=== PATIENT | female | born 1945 | race Caucasian/White ===

== ENCOUNTER 2018-02-13 08:03 | Inpatient (IN) | payer MEDICARE, OTHER ==
[~2018-02-13] VITALS: Ht 165.1 cm; Wt 70.1 kg
[~2018-02-13 08:03] MED LIST: AMLO10TA8 PO; AMLO5TAB4 PO; ASPI81TA50 PO; BUSP7.5T3 PO; CALC-112 PO; CAMPRAL MT; CLON0.1T12 PO; CLON0.1T22 PO; CLON0.2T PO; CLON0.2T10 PO; CLON0.5T11 PO; Cefdinir PO; DIAZ2TAB PO; DIAZ5TAB PO; DOCU-131 PO; FAMO20TA37 PO; FERR325T18 PO; HYDR-3343 PO; LEVO500T8 PO; LISI-170 PO; LORA-445 PO; LORA-446 PO; MAGN400T26 PO; MAGN400T7 PO; MAGN64TA7 PO; MAGNESIUM DR64 MG PO; MELA1TAB10 PO; MELA1TAB22 PO; MELA3TAB62 PO; METO10TA82 PO; METO25TA35 PO; METR500T PO; Miralax PO; ONDA4TAB10 PO; ONDA4TAB12 PO; ONDA4TAB7 PO; OXYC5CAP2 PO; OXYC5TAB3 PO; PANT40TA3 PO; POLY17PO5 PO; PRED20TA PO; PRED5TAB PO; SULF1TAB24 PO; THIA100T10 PO; TRAM-47 PO; TRAM50TA2 PO; TRAZ50TA66 PO; VENL37.52 PO; VENL75CA PO; VENL75TA2 PO; effexor PO
--- NOTE | 2018-02-13 08:33 | NUR ---
PT REFUSING THE RECOMENDED C-COLLAR EVEN AFTER REPEATED RECOMENDATIONS AND THE REASONS FOR HER SAFETY
[2018-02-13] MEDS ORDERED: FAMOTIDINE 20 MG TABLET ONE (08:38)
[2018-02-13] MEDS ORDERED: ONDANSETRON ODT 4 MG ONE (08:39)
[2018-02-13] MEDS ORDERED: FAMOTIDINE 20 MG TABLET PO ONE (09:00)
[2018-02-13] MEDS ORDERED: ONDANSETRON ODT 4 MG PO ONE (09:00)
[2018-02-13 09:10] LABS: BASOPHILS # (AUTO) 0.01 x10^3/uL (0-0.1); BASOPHILS % (AUTO) 0 % (0-1); EOSINOPHILS % (AUTO) 0 % (1-7); LYMPHOCYTES # (AUTO) 0.57 x10^3/uL (1-3.4); LYMPHOCYTES % (AUTO) 5 % (22-44); MD NO; MEAN CORPUSCULAR HEMOGLOBIN 29.9 pg (27.0-34.8); MEAN CORPUSCULAR HGB CONC 33.9 g/dL (32.4-35.8); MEAN CORPUSCULAR VOLUME 88.3 fL (80-100); MEAN PLATELET VOLUME 8.6 fL (7.4-10.4); MONOCYTES # (AUTO) 0.54 x10^3/uL (0.2-0.8); MONOCYTES % (AUTO) 5 % (2-9); NEUTROPHILS # (AUTO) 9.75 x10^3/uL (1.8-6.8); NEUTROPHILS % (AUTO) 90 % (42-75); PLATELET COUNT 446 x10^3/uL (130-400); RED BLOOD COUNT 4.32 x10^6/uL (3.82-5.3); RED CELL DISTRIBUTION WIDTH 15.1 % (9.6-15.2)
--- NOTE | 2018-02-13 09:10 | NUR ---
PT CO INCREASING NECK PAIN AND NOW AGREES TO A C-COLLAR C-COLLAR APPLIED THEN PT DEMANDED COLLAR BE REMOVED AGAIN REFUSES C-COLLAR
[2018-02-13 09:18] LABS: ANION GAP 11 mmol/L (5-15); CALCIUM 8.8 mg/dL (8.5-10.1); CHLORIDE 89 mmol/L (98-107); CREATININE 0.89 mg/dL (0.55-1.02)
[2018-02-13] MEDS ORDERED: ACETAMINOPHEN 500 MG TABLET PO ONE (09:30)
[2018-02-13] MEDS ORDERED: ACETAMINOPHEN 500 MG TABLET ONE (09:35)
--- NOTE | 2018-02-13 09:38 | NUR ---
PT REFUSING MONITORING
[2018-02-13] MEDS ORDERED: SODIUM CHLORIDE FLUSH 10ML SYR IVF ONE (10:00)
[2018-02-13] MEDS ORDERED: SODIUM CHLORIDE 0.9% 1,000ML IVBOLUS ONE (10:00)
--- NOTE | 2018-02-13 10:15 | NUR ---
TO BE ADMIT LOW SODIUM
[2018-02-13] MEDS ORDERED: ENALAPRILAT 1.25 MG/ML, 2ML IVPush PRN (11:00)
[2018-02-13] MEDS ORDERED: LABETALOL 5MG/ML, 20ML IVPush PRN (11:00)
[2018-02-13] MEDS ORDERED: ONDANSETRON 2MG/ML, 2ML IVPush PRN (11:00)
[2018-02-13 12:24] VITALS: BP 189/84
[2018-02-13] MEDS: FLUOXETINE HCL 20 MG CAPSULE PO SCH (12:49)
[2018-02-13] MEDS: LORazepam 1MG TABLET PO PRN (12:49)
[2018-02-13] MEDS: ONDANSETRON ODT 4 MG PO PRN ×2 (12:52→17:48)
[2018-02-13] MEDS: BACLOFEN 10 MG TABLET PO PRN (14:36)
[2018-02-13 17:06] VITALS: BP 141/69
[2018-02-13] MEDS: METOPROLOL TARTRATE 25 MG TABLET PO SCH (17:06)
[2018-02-13 18:06] LABS: OSMOLALITY,URINE 510 mOsm/kg (500-850); SODIUM,URINE RANDOM 16 mmol/L
[2018-02-13 18:19] LABS: CULTURE INDICATED? YES; MICROSCOPIC INDICATED
[2018-02-13 19:27] VITALS: BP 120/62
[2018-02-13] MEDS: FAMOTIDINE 20 MG TABLET PO SCH (22:27)
[2018-02-14 01:39] VITALS: BP 178/73
[2018-02-14 01:55] VITALS: BP 168/65
[2018-02-14] MEDS: ONDANSETRON ODT 4 MG PO PRN (03:13)
[2018-02-14 06:05] LABS: BASOPHILS # (AUTO) 0.02 x10^3/uL (0-0.1); BASOPHILS % (AUTO) 0 % (0-1); EOSINOPHILS % (AUTO) 0 % (1-7); LYMPHOCYTES # (AUTO) 0.99 x10^3/uL (1-3.4); LYMPHOCYTES % (AUTO) 13 % (22-44); MD NO; MEAN CORPUSCULAR HEMOGLOBIN 29.7 pg (27.0-34.8); MEAN CORPUSCULAR HGB CONC 33.9 g/dL (32.4-35.8); MEAN CORPUSCULAR VOLUME 87.6 fL (80-100); MEAN PLATELET VOLUME 8.7 fL (7.4-10.4); MONOCYTES # (AUTO) 0.64 x10^3/uL (0.2-0.8); MONOCYTES % (AUTO) 9 % (2-9); NEUTROPHILS # (AUTO) 5.85 x10^3/uL (1.8-6.8); NEUTROPHILS % (AUTO) 78 % (42-75); PLATELET COUNT 361 x10^3/uL (130-400); RED BLOOD COUNT 3.96 x10^6/uL (3.82-5.3); RED CELL DISTRIBUTION WIDTH 15.3 % (9.6-15.2)
[2018-02-14 06:10] VITALS: BP 166/64
[2018-02-14 06:13] LABS: ALBUMIN 3.3 g/dL (3.4-5.0); ANION GAP 10 mmol/L (5-15); CALCIUM 8.3 mg/dL (8.5-10.1); CHLORIDE 90 mmol/L (98-107)
[2018-02-14] MEDS: METOPROLOL TARTRATE 25 MG TABLET PO SCH ×2 (06:13→18:05)
[2018-02-14 06:25] LABS: ALANINE AMINOTRANSFERASE 24 U/L (12-78); ALKALINE PHOSPHATASE 90 U/L (45-117); BILIRUBIN,TOTAL 2.2 mg/dL (0.2-1.0); TOTAL PROTEIN 6.5 g/dL (6.4-8.2)
[2018-02-14] MEDS: LORazepam 1MG TABLET PO PRN ×3 (06:49→18:05)
[2018-02-14 07:23] VITALS: BP 162/68
[2018-02-14] MEDS: FLUOXETINE HCL 20 MG CAPSULE PO SCH (08:59)
[2018-02-14] MEDS: FAMOTIDINE 20 MG TABLET PO SCH ×2 (08:59→21:53)
[2018-02-14] MEDS ORDERED: LISI-170 PO (11:08)
[2018-02-14] MEDS ORDERED: FLUO20CA19 PO (11:08)
[2018-02-14] MEDS ORDERED: METO25TA35 PO (11:08)
[2018-02-14] MEDS ORDERED: ALLO100T30 PO (11:08)
[2018-02-14] MEDS ORDERED: OMEP-110 PO (11:08)
[2018-02-14] MEDS ORDERED: SODI1TAB PO (11:08)
[2018-02-14 13:37] VITALS: BP 164/83
[2018-02-14 19:19] VITALS: BP 161/71
[2018-02-15 00:18] VITALS: BP 189/96
[2018-02-15] MEDS ORDERED: LABETALOL 20 MG/4 ML IVPush PRN (01:30)
[2018-02-15] MEDS: ACETAMINOPHEN 325 MG TABLET PO PRN (02:11)
[2018-02-15] MEDS: LORazepam 1MG TABLET PO PRN (02:11)
[2018-02-15 02:18] VITALS: BP 136/72
[2018-02-15 02:44] LABS: CHLORIDE,URINE RANDOM 65 mmol/L; POTASSIUM,URINE RANDOM 31 mmol/L; SODIUM,URINE RANDOM 53 mmol/L
[2018-02-15] MEDS: BACLOFEN 10 MG TABLET PO PRN (03:38)
[2018-02-15 04:08] LABS: OSMOLALITY,URINE 325 mOsm/kg (500-850)
[2018-02-15 06:02] LABS: BASOPHILS # (AUTO) 0.01 x10^3/uL (0-0.1); BASOPHILS % (AUTO) 0 % (0-1); CHLORIDE 88 mmol/L (98-107); EOSINOPHILS % (AUTO) 0 % (1-7); LYMPHOCYTES # (AUTO) 0.82 x10^3/uL (1-3.4); LYMPHOCYTES % (AUTO) 8 % (22-44); MD NO; MEAN CORPUSCULAR VOLUME 88.3 fL (80-100); MEAN PLATELET VOLUME 9.2 fL (7.4-10.4); MONOCYTES # (AUTO) 0.66 x10^3/uL (0.2-0.8); MONOCYTES % (AUTO) 7 % (2-9); NEUTROPHILS # (AUTO) 8.65 x10^3/uL (1.8-6.8); NEUTROPHILS % (AUTO) 85 % (42-75); PLATELET COUNT 368 x10^3/uL (130-400); RED BLOOD COUNT 4.13 x10^6/uL (3.82-5.3); RED CELL DISTRIBUTION WIDTH 14.9 % (9.6-15.2)
[2018-02-15 06:03] LABS: ANION GAP 10 mmol/L (5-15); CALCIUM 8.4 mg/dL (8.5-10.1); CREATININE 0.96 mg/dL (0.55-1.02)
[2018-02-15 06:05] VITALS: BP 159/74
[2018-02-15] MEDS: METOPROLOL TARTRATE 25 MG TABLET PO SCH ×2 (06:07→17:36)
[2018-02-15 07:56] VITALS: BP 153/92
[2018-02-15] MEDS ORDERED: SODIUM CHLORIDE 1 GM TABLET PO SCH (09:00)
[2018-02-15] MEDS ORDERED: FLUOXETINE HCL 20 MG CAPSULE PO SCH (09:00)
[2018-02-15] MEDS ORDERED: METOPROLOL TARTRATE 25 MG TABLET PO SCH (09:00)
[2018-02-15] MEDS ORDERED: LORazepam 1MG TABLET PO SCH (09:00)
[2018-02-15] MEDS: FAMOTIDINE 20 MG TABLET PO SCH ×2 (09:03→21:09)
[2018-02-15] MEDS: ALLOPURINOL 100 MG TABLET PO SCH (09:03)
[2018-02-15] MEDS: LISINOPRIL 20 MG TABLET PO SCH (09:04)
[2018-02-15] MEDS: FLUOXETINE HCL 20 MG CAPSULE PO SCH (09:04)
[2018-02-15] MEDS: OMEPRAZOLE 20 MG CAPSULE.DR PO SCH (09:04)
[2018-02-15 14:11] VITALS: BP 159/77
[2018-02-15 14:58] LABS: CHLORIDE,URINE RANDOM 42 mmol/L; POTASSIUM,URINE RANDOM 31 mmol/L; SODIUM,URINE RANDOM 34 mmol/L
[2018-02-15 15:52] LABS: OSMOLALITY,URINE 350 mOsm/kg (500-850)
[2018-02-15] MEDS: SODIUM CHLORIDE 1 GM TABLET PO SCH ×2 (16:01→21:09)
[2018-02-15 18:31] VITALS: BP 199/78
[2018-02-15] MEDS: DEMECLOCYCLINE 150 MG TABLET PO SCH (21:00)
[2018-02-15] MEDS: VENLAFAXINE 75 MG CAP ER PO SCH (21:09)
[2018-02-15] MEDS: TEMAZEPAM 15 MG CAPSULE PO PRN (23:31)
[2018-02-16 01:33] VITALS: BP 200/73
[2018-02-16 03:00] VITALS: BP 156/73
[2018-02-16] MEDS: METOPROLOL TARTRATE 25 MG TABLET PO SCH ×2 (05:47→18:10)
[2018-02-16 06:17] LABS: MEAN CORPUSCULAR HEMOGLOBIN 30.3 pg (27.0-34.8); MEAN CORPUSCULAR HGB CONC 34.6 g/dL (32.4-35.8); MEAN CORPUSCULAR VOLUME 87.6 fL (80-100); MEAN PLATELET VOLUME 9.7 fL (7.4-10.4); PLATELET COUNT 385 x10^3/uL (130-400); RED BLOOD COUNT 4.15 x10^6/uL (3.82-5.3); RED CELL DISTRIBUTION WIDTH 14.8 % (9.6-15.2)
[2018-02-16 06:23] LABS: ANION GAP 10 mmol/L (5-15); CALCIUM 8.1 mg/dL (8.5-10.1); CHLORIDE 88 mmol/L (98-107)
[2018-02-16 06:32] LABS: BASOPHILS # (AUTO) 0.01 x10^3/uL (0-0.1); BASOPHILS % (AUTO) 0 % (0-1); EOSINOPHILS % (AUTO) 0 % (1-7); LYMPHOCYTES # (AUTO) 1.01 x10^3/uL (1-3.4); LYMPHOCYTES % (AUTO) 11 % (22-44); MD SCAN; MONOCYTES # (AUTO) 0.64 x10^3/uL (0.2-0.8); MONOCYTES % (AUTO) 7 % (2-9); NEUTROPHILS # (AUTO) 7.34 x10^3/uL (1.8-6.8); NEUTROPHILS % (AUTO) 82 % (42-75)
[2018-02-16 07:54] VITALS: BP 187/79
[2018-02-16] MEDS: OMEPRAZOLE 20 MG CAPSULE.DR PO SCH (08:11)
[2018-02-16] MEDS: FAMOTIDINE 20 MG TABLET PO SCH ×2 (08:11→19:27)
[2018-02-16] MEDS: ALLOPURINOL 100 MG TABLET PO SCH (08:12)
[2018-02-16] MEDS: SODIUM CHLORIDE 1 GM TABLET PO SCH ×3 (08:12→19:28)
[2018-02-16] MEDS: LISINOPRIL 20 MG TABLET PO SCH (08:13)
[2018-02-16] MEDS: DEMECLOCYCLINE 150 MG TABLET PO SCH ×2 (08:26→19:28)
[2018-02-16 13:47] VITALS: BP 181/76
[2018-02-16] MEDS: ONDANSETRON ODT 4 MG PO SCH (15:31)
[2018-02-16 17:29] VITALS: BP 176/80
[2018-02-16] MEDS: VENLAFAXINE 75 MG CAP ER PO SCH (19:27)
[2018-02-16 20:00] VITALS: BP 208/71
[2018-02-16] MEDS: hydrALAzine 20 MG/ML, 1ML IV PRN (22:02)
[2018-02-16] MEDS: TEMAZEPAM 15 MG CAPSULE PO PRN (22:06)
[2018-02-17 02:00] VITALS: BP 163/70
[2018-02-17] MEDS: METOPROLOL TARTRATE 25 MG TABLET PO SCH ×2 (04:54→17:32)
[2018-02-17] MEDS: ONDANSETRON ODT 4 MG PO SCH ×3 (04:54→23:39)
[2018-02-17 06:11] LABS: BASOPHILS % (AUTO) 0 % (0-1); EOSINOPHILS % (AUTO) 0 % (1-7); LYMPHOCYTES # (AUTO) 0.66 x10^3/uL (1-3.4); LYMPHOCYTES % (AUTO) 7 % (22-44); MD NO; MEAN CORPUSCULAR HEMOGLOBIN 28.5 pg (27.0-34.8); MEAN CORPUSCULAR HGB CONC 32.5 g/dL (32.4-35.8); MEAN CORPUSCULAR VOLUME 87.7 fL (80-100); MEAN PLATELET VOLUME 8.8 fL (7.4-10.4); MONOCYTES # (AUTO) 0.73 x10^3/uL (0.2-0.8); MONOCYTES % (AUTO) 8 % (2-9); NEUTROPHILS # (AUTO) 7.87 x10^3/uL (1.8-6.8); NEUTROPHILS % (AUTO) 85 % (42-75); PLATELET COUNT 390 x10^3/uL (130-400); RED BLOOD COUNT 4.18 x10^6/uL (3.82-5.3)
[2018-02-17 06:23] LABS: ANION GAP 10 mmol/L (5-15); CALCIUM 8.3 mg/dL (8.5-10.1); CHLORIDE 90 mmol/L (98-107)
[2018-02-17 06:25] LABS: CREATININE 0.85 mg/dL (0.55-1.02)
[2018-02-17 07:19] VITALS: BP 157/70
[2018-02-17] MEDS ORDERED: LISINOPRIL 20 MG TABLET PO SCH (09:00)
[2018-02-17] MEDS: SODIUM CHLORIDE 1 GM TABLET PO SCH (09:00)
[2018-02-17] MEDS: DEMECLOCYCLINE 150 MG TABLET PO SCH ×2 (09:00→20:17)
[2018-02-17] MEDS: FAMOTIDINE 20 MG TABLET PO SCH ×2 (09:25→20:13)
[2018-02-17] MEDS: OMEPRAZOLE 20 MG CAPSULE.DR PO SCH (09:25)
[2018-02-17] MEDS: ALLOPURINOL 100 MG TABLET PO SCH (09:26)
[2018-02-17 13:21] VITALS: BP 188/75
[2018-02-17] MEDS: VENLAFAXINE 75 MG CAP ER PO SCH (20:12)
[2018-02-17] MEDS: LISINOPRIL 20 MG TABLET PO SCH (20:16)
[2018-02-17 20:18] VITALS: BP 182/71
[2018-02-17] MEDS: hydrALAzine 20 MG/ML, 1ML IV PRN (23:39)
[2018-02-17] MEDS: TEMAZEPAM 15 MG CAPSULE PO PRN (23:39)
[2018-02-18 01:53] VITALS: BP 101/54
[2018-02-18] MEDS: METOPROLOL TARTRATE 25 MG TABLET PO SCH ×2 (04:51→17:24)
[2018-02-18 06:12] LABS: BASOPHILS # (AUTO) 0.02 x10^3/uL (0-0.1); BASOPHILS % (AUTO) 0 % (0-1); EOSINOPHILS % (AUTO) 0 % (1-7); LYMPHOCYTES # (AUTO) 1.41 x10^3/uL (1-3.4); LYMPHOCYTES % (AUTO) 15 % (22-44); MD NO; MEAN CORPUSCULAR HEMOGLOBIN 29.7 pg (27.0-34.8); MEAN CORPUSCULAR HGB CONC 33.7 g/dL (32.4-35.8); MEAN PLATELET VOLUME 9.3 fL (7.4-10.4); MONOCYTES # (AUTO) 0.92 x10^3/uL (0.2-0.8); MONOCYTES % (AUTO) 9 % (2-9); NEUTROPHILS # (AUTO) 7.42 x10^3/uL (1.8-6.8); NEUTROPHILS % (AUTO) 76 % (42-75); PLATELET COUNT 440 x10^3/uL (130-400); RED BLOOD COUNT 4.36 x10^6/uL (3.82-5.3); RED CELL DISTRIBUTION WIDTH 15.1 % (9.6-15.2)
[2018-02-18 06:18] LABS: CHLORIDE 89 mmol/L (98-107)
[2018-02-18 06:34] LABS: % IRON SATURATION 11 % (20-55); ALANINE AMINOTRANSFERASE 23 U/L (12-78); ALBUMIN 3.5 g/dL (3.4-5.0); ALKALINE PHOSPHATASE 100 U/L (45-117); ANION GAP 11 mmol/L (5-15); BILIRUBIN,TOTAL 1.5 mg/dL (0.2-1.0); CALCIUM 8.5 mg/dL (8.5-10.1); CREATININE 0.98 mg/dL (0.55-1.02); IRON LEVEL 40 mcg/dL (50-170); TOTAL IRON BINDING CAPACITY 350 mcg/dL (250-450)
[2018-02-18] MEDS ORDERED: POTASSIUM CHLORIDE 20 MEQ TAB.ER.PRT PO ONE (07:30)
[2018-02-18 08:13] VITALS: BP 184/68
[2018-02-18] MEDS: ALLOPURINOL 100 MG TABLET PO SCH (08:14)
[2018-02-18] MEDS: OMEPRAZOLE 20 MG CAPSULE.DR PO SCH (08:14)
[2018-02-18] MEDS: LISINOPRIL 20 MG TABLET PO SCH ×2 (08:14→20:15)
[2018-02-18] MEDS: FAMOTIDINE 20 MG TABLET PO SCH ×2 (08:14→20:15)
[2018-02-18] MEDS: DEMECLOCYCLINE 150 MG TABLET PO SCH ×3 (08:15→22:39)
[2018-02-18] MEDS ORDERED: ERGOCALCIFEROL 50,000 UNIT CAPSULE PO SCH (09:00)
[2018-02-18 12:35] LABS: CHLORIDE,URINE RANDOM 82 mmol/L; MICROSCOPIC NOT IND
[2018-02-18 12:41] LABS: OSMOLALITY,URINE 376 mOsm/kg (500-850)
[2018-02-18 12:44] LABS: POTASSIUM,URINE RANDOM 34 mmol/L; SODIUM,URINE RANDOM 66 mmol/L
[2018-02-18 15:38] VITALS: BP 193/76
[2018-02-18 16:33] VITALS: BP 212/93
[2018-02-18] MEDS: POLYETHYLENE GLYCOL 17 GM PACKET NG PRN (16:42)
[2018-02-18] MEDS: SENNA/DOCUSATE TABLET PO PRN (16:42)
[2018-02-18] MEDS: hydrALAzine 20 MG/ML, 1ML IV PRN (16:42)
[2018-02-18 17:23] VITALS: BP 130/67
[2018-02-18 19:22] VITALS: BP 164/67
[2018-02-18] MEDS: VENLAFAXINE 75 MG CAP ER PO SCH (20:15)
[2018-02-18] MEDS: TEMAZEPAM 15 MG CAPSULE PO PRN (22:39)
[2018-02-19 01:21] VITALS: BP 157/62
[2018-02-19 05:12] VITALS: BP 184/74
[2018-02-19] MEDS: METOPROLOL TARTRATE 25 MG TABLET PO SCH ×2 (05:13→17:59)
[2018-02-19] MEDS: ONDANSETRON ODT 4 MG PO SCH (05:13)
[2018-02-19 05:28] LABS: BASOPHILS # (AUTO) 0.05 x10^3/uL (0-0.1); BASOPHILS % (AUTO) 1 % (0-1); EOSINOPHILS % (AUTO) 0 % (1-7); LYMPHOCYTES # (AUTO) 1.02 x10^3/uL (1-3.4); LYMPHOCYTES % (AUTO) 13 % (22-44); MD NO; MEAN CORPUSCULAR HEMOGLOBIN 29.4 pg (27.0-34.8); MEAN CORPUSCULAR HGB CONC 33.4 g/dL (32.4-35.8); MEAN CORPUSCULAR VOLUME 88.2 fL (80-100); MEAN PLATELET VOLUME 9.4 fL (7.4-10.4); MONOCYTES # (AUTO) 0.83 x10^3/uL (0.2-0.8); MONOCYTES % (AUTO) 10 % (2-9); NEUTROPHILS # (AUTO) 6.17 x10^3/uL (1.8-6.8); NEUTROPHILS % (AUTO) 76 % (42-75); PLATELET COUNT 374 x10^3/uL (130-400); RED BLOOD COUNT 4.22 x10^6/uL (3.82-5.3); RED CELL DISTRIBUTION WIDTH 15.2 % (9.6-15.2)
[2018-02-19 05:37] LABS: ALBUMIN 3.3 g/dL (3.4-5.0); ANION GAP 11 mmol/L (5-15); CALCIUM 8.6 mg/dL (8.5-10.1); CHLORIDE 92 mmol/L (98-107)
[2018-02-19 05:38] LABS: CREATININE 0.77 mg/dL (0.55-1.02)
[2018-02-19 07:00] VITALS: BP 203/82
[2018-02-19] MEDS: hydrALAzine 20 MG/ML, 1ML IV PRN (07:30)
[2018-02-19 08:36] VITALS: BP 125/70
[2018-02-19] MEDS: FAMOTIDINE 20 MG TABLET PO SCH ×2 (09:32→20:58)
[2018-02-19] MEDS: POLYETHYLENE GLYCOL 17 GM PACKET NG PRN (09:32)
[2018-02-19] MEDS: SENNA/DOCUSATE TABLET PO PRN (09:32)
[2018-02-19] MEDS: DEMECLOCYCLINE 150 MG TABLET PO SCH ×2 (09:33→20:58)
[2018-02-19] MEDS: ALLOPURINOL 100 MG TABLET PO SCH (09:33)
[2018-02-19] MEDS: LISINOPRIL 20 MG TABLET PO SCH ×2 (09:35→20:59)
[2018-02-19] MEDS: NEUTRA PHOS K 250 MG TABLET PO SCH ×2 (09:52→21:06)
[2018-02-19] MEDS: OMEPRAZOLE 20 MG CAPSULE.DR PO SCH (09:52)
[2018-02-19] MEDS: ACETAMINOPHEN 325 MG TABLET PO PRN (12:01)
[2018-02-19 12:24] VITALS: BP 157/78
[2018-02-19] MEDS: ONDANSETRON ODT 4 MG PO PRN (18:00)
[2018-02-19 19:05] VITALS: BP 167/78
[2018-02-19] MEDS: TEMAZEPAM 15 MG CAPSULE PO PRN (20:58)
[2018-02-19] MEDS: VENLAFAXINE 75 MG CAP ER PO SCH (20:58)
[2018-02-20 01:30] VITALS: BP 159/72
[2018-02-20] MEDS: ONDANSETRON ODT 4 MG PO SCH (05:17)
[2018-02-20] MEDS: METOPROLOL TARTRATE 25 MG TABLET PO SCH ×2 (05:18→19:00)
[2018-02-20 05:53] LABS: BASOPHILS # (AUTO) 0.01 x10^3/uL (0-0.1); BASOPHILS % (AUTO) 0 % (0-1); EOSINOPHILS # (AUTO) 0.14 x10^3/uL (0-0.4); EOSINOPHILS % (AUTO) 2 % (1-7); LYMPHOCYTES # (AUTO) 0.82 x10^3/uL (1-3.4); LYMPHOCYTES % (AUTO) 11 % (22-44); MD NO; MEAN CORPUSCULAR HEMOGLOBIN 29.7 pg (27.0-34.8); MEAN CORPUSCULAR HGB CONC 33.8 g/dL (32.4-35.8); MONOCYTES # (AUTO) 0.72 x10^3/uL (0.2-0.8); MONOCYTES % (AUTO) 9 % (2-9); NEUTROPHILS # (AUTO) 6.11 x10^3/uL (1.8-6.8); NEUTROPHILS % (AUTO) 78 % (42-75); PLATELET COUNT 385 x10^3/uL (130-400); RED BLOOD COUNT 4.28 x10^6/uL (3.82-5.3); RED CELL DISTRIBUTION WIDTH 15.2 % (9.6-15.2)
[2018-02-20 06:10] LABS: OSMOLALITY,URINE 507 mOsm/kg (500-850)
[2018-02-20 06:11] LABS: CHLORIDE 90 mmol/L (98-107)
[2018-02-20 06:14] LABS: CHLORIDE,URINE RANDOM 48 mmol/L; POTASSIUM,URINE RANDOM 47 mmol/L; SODIUM,URINE RANDOM 22 mmol/L
[2018-02-20 06:26] LABS: ALANINE AMINOTRANSFERASE 20 U/L (12-78); ALBUMIN 3.3 g/dL (3.4-5.0); ALKALINE PHOSPHATASE 100 U/L (45-117); ANION GAP 11 mmol/L (5-15); BILIRUBIN,TOTAL 1.5 mg/dL (0.2-1.0); CALCIUM 8.7 mg/dL (8.5-10.1); CREATININE 0.81 mg/dL (0.55-1.02); TOTAL PROTEIN 6.5 g/dL (6.4-8.2)
[2018-02-20 07:32] VITALS: BP 201/78
[2018-02-20] MEDS: FAMOTIDINE 20 MG TABLET PO SCH ×2 (08:10→20:42)
[2018-02-20] MEDS: NEUTRA PHOS K 250 MG TABLET PO SCH ×2 (08:10→20:40)
[2018-02-20] MEDS: DEMECLOCYCLINE 150 MG TABLET PO SCH (08:11)
[2018-02-20] MEDS: OMEPRAZOLE 20 MG CAPSULE.DR PO SCH (08:11)
[2018-02-20] MEDS: ALLOPURINOL 100 MG TABLET PO SCH (08:11)
[2018-02-20] MEDS: LISINOPRIL 20 MG TABLET PO SCH ×2 (08:12→20:41)
[2018-02-20] MEDS: LORazepam 0.5MG TABLET PO PRN ×2 (09:34→18:59)
[2018-02-20 09:40] VITALS: BP 166/82
[2018-02-20] MEDS ORDERED: SODIUM CHLORIDE NASAL SPRAY 45ML BOTTLE NAS PRN (11:00)
[2018-02-20 11:50] VITALS: BP 177/84
[2018-02-20] MEDS: ONDANSETRON ODT 4 MG PO PRN (13:24)
[2018-02-20 14:02] VITALS: BP 167/80
[2018-02-20] MEDS: FUROSEMIDE 20 MG TABLET PO SCH (16:18)
[2018-02-20 18:57] VITALS: BP 166/85
[2018-02-20] MEDS: VENLAFAXINE 75 MG CAP ER PO SCH (20:41)
[2018-02-21 01:15] VITALS: BP 151/80
[2018-02-21] MEDS: ONDANSETRON ODT 4 MG PO PRN ×2 (01:45→06:37)
[2018-02-21] MEDS: LORazepam 0.5MG TABLET PO PRN ×3 (01:56→18:34)
[2018-02-21 05:40] VITALS: BP 166/74
[2018-02-21] MEDS: METOPROLOL TARTRATE 25 MG TABLET PO SCH ×2 (05:44→18:06)
[2018-02-21 06:20] LABS: BASOPHILS # (AUTO) 0.01 x10^3/uL (0-0.1); BASOPHILS % (AUTO) 0 % (0-1); EOSINOPHILS % (AUTO) 0 % (1-7); LYMPHOCYTES # (AUTO) 0.85 x10^3/uL (1-3.4); LYMPHOCYTES % (AUTO) 10 % (22-44); MD NO; MEAN CORPUSCULAR HEMOGLOBIN 29.4 pg (27.0-34.8); MEAN CORPUSCULAR HGB CONC 33.9 g/dL (32.4-35.8); MEAN CORPUSCULAR VOLUME 86.7 fL (80-100); MEAN PLATELET VOLUME 8.8 fL (7.4-10.4); MONOCYTES # (AUTO) 0.59 x10^3/uL (0.2-0.8); MONOCYTES % (AUTO) 7 % (2-9); NEUTROPHILS # (AUTO) 7.15 x10^3/uL (1.8-6.8); NEUTROPHILS % (AUTO) 83 % (42-75); PLATELET COUNT 391 x10^3/uL (130-400); RED BLOOD COUNT 4.18 x10^6/uL (3.82-5.3); RED CELL DISTRIBUTION WIDTH 14.7 % (9.6-15.2)
[2018-02-21 06:31] LABS: ALBUMIN 3.2 g/dL (3.4-5.0); ANION GAP 9 mmol/L (5-15); CALCIUM 8.2 mg/dL (8.5-10.1); CHLORIDE 86 mmol/L (98-107)
[2018-02-21 06:34] LABS: ALANINE AMINOTRANSFERASE 22 U/L (12-78); ALKALINE PHOSPHATASE 102 U/L (45-117); BILIRUBIN,TOTAL 1.6 mg/dL (0.2-1.0); CREATININE 0.79 mg/dL (0.55-1.02); TOTAL PROTEIN 6.3 g/dL (6.4-8.2)
[2018-02-21 07:22] VITALS: BP 187/82
[2018-02-21] MEDS: FAMOTIDINE 20 MG TABLET PO SCH ×2 (08:35→20:23)
[2018-02-21] MEDS: NEUTRA PHOS K 250 MG TABLET PO SCH ×2 (08:35→20:23)
[2018-02-21] MEDS: ALLOPURINOL 100 MG TABLET PO SCH (08:35)
[2018-02-21] MEDS: OMEPRAZOLE 20 MG CAPSULE.DR PO SCH (08:35)
[2018-02-21] MEDS: FUROSEMIDE 20 MG TABLET PO SCH ×2 (08:35→16:32)
[2018-02-21] MEDS: LISINOPRIL 20 MG TABLET PO SCH ×2 (08:36→20:23)
[2018-02-21 13:31] VITALS: BP 99/59
[2018-02-21 16:21] LABS: CHLORIDE,URINE RANDOM 67 mmol/L; POTASSIUM,URINE RANDOM 41 mmol/L; SODIUM,URINE RANDOM 48 mmol/L
[2018-02-21 19:22] LABS: OSMOLALITY,URINE 366 mOsm/kg (500-850)
[2018-02-21 20:00] VITALS: BP 115/70
[2018-02-21] MEDS: VENLAFAXINE 75 MG CAP ER PO SCH (20:22)
[2018-02-22 01:23] VITALS: BP 129/71
[2018-02-22] MEDS: LORazepam 0.5MG TABLET PO PRN (03:50)
[2018-02-22 05:24] VITALS: BP 165/75
[2018-02-22] MEDS: METOPROLOL TARTRATE 25 MG TABLET PO SCH ×2 (05:38→16:26)
[2018-02-22 05:54] LABS: CHLORIDE 86 mmol/L (98-107)
[2018-02-22 05:57] LABS: POTASSIUM,URINE RANDOM 37 mmol/L; SODIUM,URINE RANDOM 15 mmol/L
[2018-02-22 06:03] LABS: ALANINE AMINOTRANSFERASE 16 U/L (12-78); ALKALINE PHOSPHATASE 101 U/L (45-117); ANION GAP 10 mmol/L (5-15); BILIRUBIN,TOTAL 1.8 mg/dL (0.2-1.0); CALCIUM 8.1 mg/dL (8.5-10.1); OSMOLALITY,URINE 415 mOsm/kg (500-850); TOTAL PROTEIN 6.2 g/dL (6.4-8.2)
[2018-02-22 06:05] LABS: CHLORIDE,URINE RANDOM < 10 mmol/L
[2018-02-22] MEDS ORDERED: POTASSIUM CHLORIDE 60 MEQ in SODIUM CHLORIDE 0.9% 1,000 ML IV ONE (07:00)
[2018-02-22 08:00] VITALS: BP 147/78
[2018-02-22] MEDS ORDERED: MAGNESIUM SULFATE 3 GM in SODIUM CHLORIDE 0.9% 100 ML IV ONE (08:00)
[2018-02-22] MEDS: NEUTRA PHOS K 250 MG TABLET PO SCH ×2 (08:39→20:31)
[2018-02-22] MEDS: OMEPRAZOLE 20 MG CAPSULE.DR PO SCH (08:39)
[2018-02-22] MEDS: LISINOPRIL 20 MG TABLET PO SCH ×2 (08:39→20:38)
[2018-02-22] MEDS: FAMOTIDINE 20 MG TABLET PO SCH ×2 (08:40→20:32)
[2018-02-22] MEDS: ALLOPURINOL 100 MG TABLET PO SCH (08:40)
[2018-02-22] MEDS: FUROSEMIDE 20 MG TABLET PO SCH ×2 (08:40→16:26)
[2018-02-22] MEDS: CITALOPRAM 20 MG TABLET PO SCH (08:40)
[2018-02-22 13:10] VITALS: BP 143/75
[2018-02-22 19:07] VITALS: BP 108/62
[2018-02-22] MEDS: VENLAFAXINE 75 MG CAP ER PO SCH (20:31)
[2018-02-23] VITALS (7 sets, daily range): BP systolic 122–177; BP diastolic 66–78
[2018-02-23 05:55] LABS: BASOPHILS % (AUTO) 0 % (0-1); EOSINOPHILS # (AUTO) 0.12 x10^3/uL (0-0.4); EOSINOPHILS % (AUTO) 2 % (1-7); LYMPHOCYTES # (AUTO) 0.98 x10^3/uL (1-3.4); LYMPHOCYTES % (AUTO) 14 % (22-44); MD NO; MEAN CORPUSCULAR HEMOGLOBIN 29.6 pg (27.0-34.8); MEAN CORPUSCULAR HGB CONC 33.6 g/dL (32.4-35.8); MEAN CORPUSCULAR VOLUME 88.1 fL (80-100); MEAN PLATELET VOLUME 9.4 fL (7.4-10.4); MONOCYTES # (AUTO) 0.64 x10^3/uL (0.2-0.8); MONOCYTES % (AUTO) 9 % (2-9); NEUTROPHILS % (AUTO) 75 % (42-75); PLATELET COUNT 313 x10^3/uL (130-400); RED BLOOD COUNT 4.23 x10^6/uL (3.82-5.3); RED CELL DISTRIBUTION WIDTH 15.1 % (9.6-15.2)
[2018-02-23 06:04] LABS: ANION GAP 9 mmol/L (5-15); CALCIUM 8.1 mg/dL (8.5-10.1); CHLORIDE 89 mmol/L (98-107)
[2018-02-23 06:24] LABS: ALANINE AMINOTRANSFERASE 18 U/L (12-78); ALKALINE PHOSPHATASE 98 U/L (45-117); BILIRUBIN,TOTAL 1.7 mg/dL (0.2-1.0); CREATININE 0.85 mg/dL (0.55-1.02)
[2018-02-23] MEDS: METOPROLOL TARTRATE 25 MG TABLET PO SCH ×2 (06:28→17:36)
[2018-02-23] MEDS: LISINOPRIL 20 MG TABLET PO SCH ×2 (08:40→20:08)
[2018-02-23] MEDS: NEUTRA PHOS K 250 MG TABLET PO SCH ×2 (08:41→20:09)
[2018-02-23] MEDS: FUROSEMIDE 20 MG TABLET PO SCH ×2 (08:41→17:36)
[2018-02-23] MEDS: FAMOTIDINE 20 MG TABLET PO SCH ×2 (08:41→20:10)
[2018-02-23] MEDS: CITALOPRAM 20 MG TABLET PO SCH (08:41)
[2018-02-23] MEDS: OMEPRAZOLE 20 MG CAPSULE.DR PO SCH (08:47)
[2018-02-23] MEDS: ALLOPURINOL 100 MG TABLET PO SCH (08:47)
[2018-02-23] MEDS ORDERED: PINK LADY ENEMA 490 ML BOTTLE PR ONE (12:30)
[2018-02-23] MEDS: VENLAFAXINE 75 MG CAP ER PO SCH (20:10)
[2018-02-24 01:16] VITALS: BP 108/66
[2018-02-24 05:23] VITALS: BP 162/76
[2018-02-24] MEDS: METOPROLOL TARTRATE 25 MG TABLET PO SCH (05:38)
[2018-02-24 06:16] LABS: BASOPHILS # (AUTO) 0.02 x10^3/uL (0-0.1); BASOPHILS % (AUTO) 0 % (0-1); EOSINOPHILS % (AUTO) 0 % (1-7); LYMPHOCYTES # (AUTO) 0.91 x10^3/uL (1-3.4); LYMPHOCYTES % (AUTO) 13 % (22-44); MD NO; MEAN CORPUSCULAR HEMOGLOBIN 29.6 pg (27.0-34.8); MEAN CORPUSCULAR HGB CONC 33.3 g/dL (32.4-35.8); MEAN PLATELET VOLUME 9.4 fL (7.4-10.4); MONOCYTES # (AUTO) 0.74 x10^3/uL (0.2-0.8); MONOCYTES % (AUTO) 10 % (2-9); NEUTROPHILS # (AUTO) 5.63 x10^3/uL (1.8-6.8); NEUTROPHILS % (AUTO) 77 % (42-75); PLATELET COUNT 379 x10^3/uL (130-400); RED BLOOD COUNT 4.36 x10^6/uL (3.82-5.3); RED CELL DISTRIBUTION WIDTH 15.1 % (9.6-15.2)
[2018-02-24 06:24] LABS: CHLORIDE 88 mmol/L (98-107)
[2018-02-24 06:37] VITALS: BP 184/78
[2018-02-24 06:52] LABS: ANION GAP 10 mmol/L (5-15); CALCIUM 8.6 mg/dL (8.5-10.1); CREATININE 0.93 mg/dL (0.55-1.02)
[2018-02-24] MEDS: OMEPRAZOLE 20 MG CAPSULE.DR PO SCH (09:05)
[2018-02-24] MEDS: CITALOPRAM 20 MG TABLET PO SCH (09:05)
[2018-02-24] MEDS: FAMOTIDINE 20 MG TABLET PO SCH (09:06)
[2018-02-24] MEDS: FUROSEMIDE 20 MG TABLET PO SCH ×2 (09:06→16:40)
[2018-02-24] MEDS: ALLOPURINOL 100 MG TABLET PO SCH (09:06)
[2018-02-24] MEDS: NEUTRA PHOS K 250 MG TABLET PO SCH (09:06)
[2018-02-24] MEDS: LISINOPRIL 20 MG TABLET PO SCH (09:06)
[2018-02-24] MEDS ORDERED: FURO20TA3 PO (10:53)
[2018-02-24] MEDS ORDERED: PHOS250T3 PO (10:53)
[2018-02-24] MEDS ORDERED: HYDR-3341 PO (10:53)
[2018-02-24] MEDS ORDERED: ERGO500017 PO (10:53)
[2018-02-24] MEDS ORDERED: LISI-170 PO (10:53)
[2018-02-24] MEDS ORDERED: CITA20TA9 PO (10:53)
[2018-02-24] MEDS ORDERED: CLON0.5T11 PO (10:53)
[2018-02-24] MEDS ORDERED: POTA20PA25 PO (11:02)
[2018-02-24 14:37] VITALS: BP_SYST 117; BP_SYST 99; BP_DIAS 61; BP_DIAS 70
== END 2018-02-24 17:35 | DRG 645 ==
LOC: ED 08:47 → EDIP 10:17 → 4EST 12:00 → 4WST 02-17 21:56
PROVIDERS: ADMIT Internal Medicine; ATTEND Internal Medicine
DX: E22.2 Syndrome of inappropriate secretion of antidiuretic hormone (principal); S16.1XXA Strain of muscle, fascia and tendon at neck level, initial encounter; R19.7 Diarrhea, unspecified; D72.829 Elevated white blood cell count, unspecified; F41.1 Generalized anxiety disorder; M51.36 Other intervertebral disc degeneration, lumbar region; K59.00 Constipation, unspecified; I11.9 Hypertensive heart disease without heart failure; F32.9 Major depressive disorder, single episode, unspecified; X58.XXXA Exposure to other specified factors, initial encounter; R33.9 Retention of urine, unspecified; T43.225A Adverse effect of selective serotonin reuptake inhibitors, initial encounter; I44.7 Left bundle-branch block, unspecified; Z91.81 History of falling; Z90.49 Acquired absence of other specified parts of digestive tract; Z90.710 Acquired absence of both cervix and uterus; Y93.9 Activity, unspecified; Y92.89 Other specified places as the place of occurrence of the external cause; Y99.8 Other external cause status
CPT/HCPCS: 36415; 72125; 74018; 74176; 80048; 80053; 80069; 80307; 81001; 81003; 82306; 82330; 82436; 82728; 83540; 83550; 83735; 83930; 83935; 83970; 84100; 84133; 84300; 84443; 84550; 85025; 87086; 93005; 99285; G0378; J2405; J3475; J3480; Q0162; J0360; J7030

== ENCOUNTER 2018-05-26 10:16 | Emergency (ER) | payer MEDICARE, OTHER ==
[~2018-05-26] VITALS: Ht 170.2 cm; Wt 65.9 kg
[~2018-05-26 10:16] MED LIST changes: +ALLO100T30 PO; +CITA20TA9 PO; +ERGO500017 PO; +FLUO20CA19 PO; +FURO20TA3 PO; +HYDR-3341 PO; +OMEP-110 PO; +PHOS250T3 PO; +POTA20PA25 PO; +SODI1TAB PO
--- NOTE | 2018-05-26 10:39 | NUR ---
Pt presents to ED by EMS from home with c/o "urinary retention for six days and anxiety and back of neck pain," with 8/10 suprapubic pain. Pt took two- Tylenol PMs (500mg Tylenol/25mg Benadryl per tablet) prior to arrival. Pt states pmh of urinary retention stating, "The doctor said I don't produce a hormone that helps me to go pee." NADN. No abdominal or bladder distention noticed. Pt not tender to palpation. Pt connected to monitor worker, NIBP, and contious pulse ox. Call light within reach. All safety measures in place. Pt denies n/v/d, sob, cp, trauma, blood in stool, constipation, blood in urine, back pain, flank pain, burning with urination. Pt recently seen at [facility] and was being treated by Dr. Gomez.
--- NOTE | 2018-05-26 11:14 | NUR ---
ED MD bladder scanned 500 mL of urine in pt's bladder. Placed fagan catheter per ED MD order and followed ED MD orders and hospital policy for insertion/placement. Cleansing wipes used per hospital policy, wipes removed from stock on floor, not from [employer], due to [employer] being empty. UA sent.
[2018-05-26 12:03] LABS: MICROSCOPIC NOT IND
[2018-05-26 12:33] LABS: CULTURE INDICATED? NO
--- NOTE | 2018-05-26 12:46 | NUR ---
Provided pt medication per request and per EMAR. Pt appreciative. Pt states, "is the half a milligram of xanax going to even do anything?"
[2018-05-26 12:48] VITALS: BP 137/68
[2018-05-26 12:53] LABS: ALANINE AMINOTRANSFERASE 16 U/L (12-78); ALBUMIN 3.7 g/dL (3.4-5.0); ANION GAP 8 mmol/L (5-15); CALCIUM 8.8 mg/dL (8.5-10.1); CHLORIDE 100 mmol/L (98-107)
[2018-05-26 12:56] LABS: ALKALINE PHOSPHATASE 116 U/L (45-117); BASOPHILS # (AUTO) 0.01 x10^3/uL (0-0.1); BASOPHILS % (AUTO) 0 % (0-1); BILIRUBIN,TOTAL 0.9 mg/dL (0.2-1.0); CREATININE 0.89 mg/dL (0.55-1.02); EOSINOPHILS # (AUTO) 0.11 x10^3/uL (0-0.4); EOSINOPHILS % (AUTO) 2 % (1-7); LYMPHOCYTES # (AUTO) 0.81 x10^3/uL (1-3.4); LYMPHOCYTES % (AUTO) 13 % (22-44); MD NO; MEAN CORPUSCULAR HEMOGLOBIN 31.5 pg (27.0-34.8); MEAN CORPUSCULAR HGB CONC 34.2 g/dL (32.4-35.8); MEAN CORPUSCULAR VOLUME 92.2 fL (80-100); MEAN PLATELET VOLUME 9.8 fL (7.4-10.4); MONOCYTES # (AUTO) 0.42 x10^3/uL (0.2-0.8); MONOCYTES % (AUTO) 7 % (2-9); NEUTROPHILS # (AUTO) 5.09 x10^3/uL (1.8-6.8); NEUTROPHILS % (AUTO) 79 % (42-75); PLATELET COUNT 346 x10^3/uL (130-400); RED BLOOD COUNT 3.68 x10^6/uL (3.82-5.3); RED CELL DISTRIBUTION WIDTH 15.1 % (9.6-15.2); TOTAL PROTEIN 6.8 g/dL (6.4-8.2)
--- NOTE | 2018-05-26 13:44 | NUR ---
Cramer catheter removed with out complications. NADN. Pt states appreciation.
--- NOTE | 2018-05-26 13:45 | NUR ---
Patient given discharge instructions and they have confirmed that they understand the instructions. Patient ambulatory with steady gait. Pt left with discharge paperwork and all personal belongings.
== END 2018-05-26 13:48 | disposition home or self-care (01) ==
LOC: ED 12:39
DX: R33.9 Retention of urine, unspecified (principal); I10 Essential (primary) hypertension; Z90.710 Acquired absence of both cervix and uterus; Z88.1 Allergy status to other antibiotic agents
CPT/HCPCS: 36415; 51702; 80053; 81003; 83690; 85025; 99284

== ENCOUNTER 2018-08-05 18:06 | Emergency (ER) | payer MEDICARE, OTHER ==
[~2018-08-05] VITALS: Ht 170.2 cm; Wt 64.0 kg
--- NOTE | 2018-08-05 18:12 | NUR ---
BIB [facility] FROM HOME FOR WEAKNESS AND NAUSEA X3 DAYS, LOWER ABD PAIN. HTN STATES RAN OUT OF BP MEDS. 4 ZOFRAN GIVEN IN ROUTE
[2018-08-05] MEDS ORDERED: ONDANSETRON ODT 4 MG ONE (18:52)
[2018-08-05] MEDS ORDERED: LORazepam 1MG TABLET ONE (18:53)
[2018-08-05 18:56] VITALS: BP 207/97
[2018-08-05 19:00] LABS: BASOPHILS # (AUTO) 0.03 x10^3/uL (0-0.1); BASOPHILS % (AUTO) 0 % (0-1); EOSINOPHILS # (AUTO) 0.01 x10^3/uL (0-0.4); EOSINOPHILS % (AUTO) 0 % (1-7); LYMPHOCYTES # (AUTO) 1.21 x10^3/uL (1-3.4); LYMPHOCYTES % (AUTO) 14 % (22-44); MD NO; MEAN CORPUSCULAR HEMOGLOBIN 31.1 pg (27.0-34.8); MEAN CORPUSCULAR HGB CONC 33.7 g/dL (32.4-35.8); MEAN CORPUSCULAR VOLUME 92.2 fL (80-100); MEAN PLATELET VOLUME 8.2 fL (7.4-10.4); MONOCYTES % (AUTO) 8 % (2-9); NEUTROPHILS # (AUTO) 6.83 x10^3/uL (1.8-6.8); NEUTROPHILS % (AUTO) 78 % (42-75); PLATELET COUNT 353 x10^3/uL (130-400); RED CELL DISTRIBUTION WIDTH 12.8 % (9.6-15.2)
[2018-08-05] MEDS ORDERED: LORazepam 1MG TABLET PO ONE (19:00)
[2018-08-05] MEDS ORDERED: ONDANSETRON ODT 4 MG PO ONE (19:00)
[2018-08-05 19:02] LABS: ALANINE AMINOTRANSFERASE 10 U/L (12-78); ALBUMIN 3.9 g/dL (3.4-5.0); ANION GAP 9 mmol/L (5-15); CALCIUM 8.6 mg/dL (8.5-10.1); CHLORIDE 94 mmol/L (98-107); CREATININE 0.78 mg/dL (0.55-1.02)
--- NOTE | 2018-08-05 19:02 | NUR ---
PT MEDICATED FOR ANXIETY AND NAUSEA PER EMAR
[2018-08-05 19:04] LABS: ALKALINE PHOSPHATASE 115 U/L (45-117); BILIRUBIN,TOTAL 3.4 mg/dL (0.2-1.0); TOTAL PROTEIN 6.9 g/dL (6.4-8.2)
[2018-08-05 20:03] LABS: MICROSCOPIC AUTO
[2018-08-05 20:10] LABS: CULTURE INDICATED? YES
== END 2018-08-05 19:59 | disposition home or self-care (01) ==
LOC: ED 19:32
DX: R11.2 Nausea with vomiting, unspecified (principal); F41.1 Generalized anxiety disorder; E87.1 Hypo-osmolality and hyponatremia; E80.6 Other disorders of bilirubin metabolism; I10 Essential (primary) hypertension; Z88.1 Allergy status to other antibiotic agents; Z79.899 Other long term (current) drug therapy
CPT/HCPCS: 36415; 80053; 80307; 81001; 83690; 85025; 87086; 99283; Q0162

== ENCOUNTER 2019-01-08 13:58 | Inpatient (IN) | payer MEDICARE, OTHER ==
[~2019-01-08] VITALS: Ht 165.1 cm; Wt 62.1 kg
[~2019-01-08 13:58] MED LIST changes: -MAGN400T7 PO; +MAGN400T9 PO
--- NOTE | 2019-01-08 14:18 | NUR ---
PT BIB EMS FOR ANXIETY. PER EMS PT WAS GIVEN ZOFRAN. PT ANXIOUS, DEPRESSED, AND CRYING. WAS RECENTLY DC FROM [facility] FOR SAME COMPLAINT. PT STATES "I DO NOT WANT TO STAY, PT STATES SHE FEELS LONELY AND HAS NO FRIENDS OR FAMILY" MD AT BEDSIDE. MEDICATED PER ORDERS
[2019-01-08 14:24] LABS: BASOPHILS # (AUTO) 0.02 x10^3/uL (0-0.1); BASOPHILS % (AUTO) 0 % (0-1); EOSINOPHILS % (AUTO) 0 % (1-7); LYMPHOCYTES # (AUTO) 0.78 x10^3/uL (1-3.4); LYMPHOCYTES % (AUTO) 10 % (22-44); MD NO; MEAN CORPUSCULAR HEMOGLOBIN 32.1 pg (27.0-34.8); MEAN CORPUSCULAR HGB CONC 33.4 g/dL (32.4-35.8); MEAN CORPUSCULAR VOLUME 96.1 fL (80-100); MEAN PLATELET VOLUME 8.1 fL (7.4-10.4); MONOCYTES # (AUTO) 0.91 x10^3/uL (0.2-0.8); MONOCYTES % (AUTO) 12 % (2-9); NEUTROPHILS # (AUTO) 6.16 x10^3/uL (1.8-6.8); NEUTROPHILS % (AUTO) 78 % (42-75); PLATELET COUNT 409 x10^3/uL (130-400); RED BLOOD COUNT 4.12 x10^6/uL (3.82-5.3); RED CELL DISTRIBUTION WIDTH 14.8 % (9.6-15.2)
[2019-01-08 14:36] LABS: ALANINE AMINOTRANSFERASE 36 U/L (12-78); ALBUMIN 3.5 g/dL (3.4-5.0); ANION GAP 10 mmol/L (5-15); CALCIUM 8.5 mg/dL (8.5-10.1); CHLORIDE 88 mmol/L (98-107); CREATININE 0.85 mg/dL (0.55-1.02)
[2019-01-08 14:38] LABS: ALKALINE PHOSPHATASE 136 U/L (45-117); SALICYLATE LEVEL < 1.7 mg/dL (2.8-20.0); TOTAL PROTEIN 7.3 g/dL (6.4-8.2)
[2019-01-08] MEDS ORDERED: SERTRALINE 50MG TABLET PO ONE (15:00)
[2019-01-08] MEDS ORDERED: SODIUM CHLORIDE 0.9% 1,000 ML IV ONE (15:03)
--- NOTE | 2019-01-08 15:22 | NUR ---
BREAK RN: PIV ATTEMPTED. WILL ASK TECH TO INSERT US IV.
[2019-01-08] MEDS ORDERED: SODIUM CHLORIDE FLUSH 10ML SYR IVF ONE (15:30)
[2019-01-08] MEDS ORDERED: SERTRALINE 50MG TABLET ONE (15:36)
--- NOTE | 2019-01-08 15:44 | NUR ---
REPORT TO FRANSICO
--- NOTE | 2019-01-08 16:36 | NUR ---
PT AMBULATED TO BATHROOM. UNABLE TO VOID.
[2019-01-08] MEDS: ENOXAPARIN 40 MG/0.4 ML SQ SCH (17:00)
[2019-01-08] MEDS ORDERED: ACETAMINOPHEN 325 MG TABLET PO PRN (17:00)
[2019-01-08] MEDS ORDERED: DOCUSATE 100 MG CAPSULE PO PRN (17:00)
[2019-01-08] MEDS ORDERED: ONDANSETRON 2MG/ML, 2ML IVPush PRN (17:00)
[2019-01-08] MEDS ORDERED: ENALAPRILAT 1.25 MG/ML, 2ML IVPush PRN (17:00)
[2019-01-08] MEDS ORDERED: LABETALOL 5MG/ML, 20ML IVPush PRN (17:00)
[2019-01-08] MEDS ORDERED: ONDANSETRON ODT 4 MG PO PRN (17:00)
[2019-01-08] MEDS ORDERED: POLYETHYLENE GLYCOL 17 GM PACKET PO PRN (17:00)
[2019-01-08] MEDS ORDERED: BISACODYL 10 MG SUPP PR PRN (17:00)
--- NOTE | 2019-01-08 17:32 | NUR ---
report to lizette
[2019-01-08 19:17] VITALS: BP 176/89
[2019-01-08] MEDS: SODIUM CHLORIDE 0.9% 1,000 ML IV SCH (19:36)
[2019-01-08 21:00] VITALS: BP 113/78
[2019-01-08] MEDS: FAMOTIDINE 20 MG/2 ML IVPush SCH (21:50)
[2019-01-09 01:19] LABS: SODIUM,URINE RANDOM 23 mmol/L
[2019-01-09 01:22] LABS: OSMOLALITY,URINE 253 mOsm/kg (500-850)
[2019-01-09] MEDS: SODIUM CHLORIDE 0.9% 1,000 ML IV SCH (04:37)
[2019-01-09 06:23] LABS: AMPHETAMINE SCREEN, URINE Negative (Negative); BARBITURATE SCREEN, URINE Negative (Negative); BENZODIAZEPINE SCREEN, URINE Negative (Negative); CANNABINOID SCREEN, URINE Negative (Negative); COCAINE SCREEN, URINE Negative (Negative); METHADONE SCREEN, URINE Negative (Negative); OPIATE SCREEN, URINE Negative (Negative)
[2019-01-09 06:24] LABS: BASOPHILS # (AUTO) 0.02 x10^3/uL (0-0.1); BASOPHILS % (AUTO) 0 % (0-1); EOSINOPHILS # (AUTO) 0.03 x10^3/uL (0-0.4); EOSINOPHILS % (AUTO) 1 % (1-7); LYMPHOCYTES # (AUTO) 0.91 x10^3/uL (1-3.4); LYMPHOCYTES % (AUTO) 17 % (22-44); MD NO; MEAN CORPUSCULAR HEMOGLOBIN 32.1 pg (27.0-34.8); MEAN CORPUSCULAR HGB CONC 33.1 g/dL (32.4-35.8); MEAN CORPUSCULAR VOLUME 96.8 fL (80-100); MEAN PLATELET VOLUME 8.3 fL (7.4-10.4); MONOCYTES # (AUTO) 0.68 x10^3/uL (0.2-0.8); MONOCYTES % (AUTO) 13 % (2-9); NEUTROPHILS # (AUTO) 3.62 x10^3/uL (1.8-6.8); NEUTROPHILS % (AUTO) 69 % (42-75); PLATELET COUNT 325 x10^3/uL (130-400); RED BLOOD COUNT 3.56 x10^6/uL (3.82-5.3); RED CELL DISTRIBUTION WIDTH 14.8 % (9.6-15.2)
[2019-01-09 06:28] LABS: CULTURE INDICATED? YES; MICROSCOPIC INDICATED
[2019-01-09 06:33] LABS: CHLORIDE 95 mmol/L (98-107)
[2019-01-09 06:43] LABS: ALANINE AMINOTRANSFERASE 27 U/L (12-78); ALBUMIN 2.8 g/dL (3.4-5.0); ALKALINE PHOSPHATASE 109 U/L (45-117); ANION GAP 7 mmol/L (5-15); CALCIUM 7.6 mg/dL (8.5-10.1); CREATININE 0.85 mg/dL (0.55-1.02); TOTAL PROTEIN 5.7 g/dL (6.4-8.2)
[2019-01-09 08:00] VITALS: BP 158/72
[2019-01-09] MEDS ORDERED: POTASSIUM CHLORIDE 20 MEQ, MAGNESIUM SULFATE 2 GM, THIAMINE 200 MG, FOLIC ACID 1 MG, MV... IV ONE (09:00)
[2019-01-09] MEDS: FAMOTIDINE 20 MG/2 ML IVPush SCH (09:10)
[2019-01-09] MEDS: LISINOPRIL 20 MG TABLET PO SCH (09:11)
[2019-01-09] MEDS: LORazepam 0.5MG TABLET PO PRN ×3 (09:22→22:59)
[2019-01-09 13:24] VITALS: BP 96/61
[2019-01-09 14:21] LABS: MICROSCOPIC INDICATED
[2019-01-09 14:25] LABS: ANION GAP 7 mmol/L (5-15); CALCIUM 7.8 mg/dL (8.5-10.1); CHLORIDE 99 mmol/L (98-107); CREATININE 0.99 mg/dL (0.55-1.02)
[2019-01-09 15:40] LABS: AMPHETAMINE SCREEN, URINE Negative (Negative); BARBITURATE SCREEN, URINE Negative (Negative); BENZODIAZEPINE SCREEN, URINE Negative (Negative); CANNABINOID SCREEN, URINE Negative (Negative); COCAINE SCREEN, URINE Negative (Negative); METHADONE SCREEN, URINE Negative (Negative); OPIATE SCREEN, URINE Negative (Negative)
[2019-01-09 15:41] LABS: OSMOLALITY,URINE 253 mOsm/kg (500-850)
[2019-01-09] MEDS: DULOXETINE 30 MG CAPSULE.DR PO SCH (16:05)
[2019-01-09] MEDS: ENOXAPARIN 40 MG/0.4 ML SQ SCH (17:00)
[2019-01-09 20:45] VITALS: BP 152/65
[2019-01-09] MEDS: METOPROLOL TARTRATE 25 MG TABLET PO SCH (20:59)
[2019-01-10 00:08] VITALS: BP 146/71
[2019-01-10] MEDS: LORazepam 0.5MG TABLET PO PRN (05:44)
[2019-01-10 05:55] LABS: ALBUMIN 2.8 g/dL (3.4-5.0); ANION GAP 5 mmol/L (5-15); CALCIUM 7.9 mg/dL (8.5-10.1); CHLORIDE 98 mmol/L (98-107)
[2019-01-10 05:59] LABS: ALANINE AMINOTRANSFERASE 24 U/L (12-78); ALKALINE PHOSPHATASE 100 U/L (45-117); BILIRUBIN,TOTAL 1.3 mg/dL (0.2-1.0); CREATININE 0.81 mg/dL (0.55-1.02); TOTAL PROTEIN 5.8 g/dL (6.4-8.2)
[2019-01-10 06:58] VITALS: BP 176/77
[2019-01-10] MEDS: DULOXETINE 30 MG CAPSULE.DR PO SCH (08:40)
[2019-01-10] MEDS: METOPROLOL TARTRATE 25 MG TABLET PO SCH (08:41)
[2019-01-10] MEDS: LISINOPRIL 20 MG TABLET PO SCH (08:41)
[2019-01-10] MEDS ORDERED: FAMOTIDINE 20 MG/2 ML IVPush SCH (09:00)
[2019-01-10] MEDS ORDERED: CLON0.2T10 PO (10:41)
[2019-01-10] MEDS ORDERED: SODI1TAB PO (10:41)
[2019-01-10] MEDS ORDERED: POTA20PA25 PO (10:41)
[2019-01-10] MEDS ORDERED: DULO30CA2 PO (10:41)
[2019-01-10] MEDS ORDERED: LISI-170 PO (10:41)
[2019-01-10 12:46] VITALS: BP 125/68
== END 2019-01-10 13:50 | disposition home health service (06) | DRG 641 ==
LOC: ED 15:13 → EDIP 15:14 → ED 15:49 → 3N 18:40 → DCLOUNGE 01-10 13:45
PROVIDERS: ADMIT Family Medicine; ATTEND Family Medicine
DX: E87.1 Hypo-osmolality and hyponatremia (principal); F10.229 Alcohol dependence with intoxication, unspecified; F41.9 Anxiety disorder, unspecified; E80.6 Other disorders of bilirubin metabolism; E83.42 Hypomagnesemia; E87.6 Hypokalemia; F32.9 Major depressive disorder, single episode, unspecified; I10 Essential (primary) hypertension; Y90.0 Blood alcohol level of less than 20 mg/100 ml; Z80.3 Family history of malignant neoplasm of breast; Z88.8 Allergy status to other drugs, medicaments and biological substances; Z80.52 Family history of malignant neoplasm of bladder; Z87.440 Personal history of urinary (tract) infections; Z90.710 Acquired absence of both cervix and uterus
CPT/HCPCS: 36415; 80048; 80053; 80307; 81001; 83735; 83930; 83935; 84100; 84295; 84300; 85025; 87086; 99285; G0378; J3411; J3475; J3480; J3490; J7030

== ENCOUNTER 2019-05-23 17:49 | Emergency (ER) | payer MEDICARE, OTHER ==
[~2019-05-23] VITALS: Ht 175.3 cm; Wt 75.0 kg
[~2019-05-23 17:49] MED LIST changes: +CLON-364 PO; -CLON0.5T11 PO; +DULO30CA2 PO; +ONDA-89 PO; -ONDA4TAB12 PO
--- NOTE | 2019-05-23 17:58 | NUR ---
LATE ENTRY: Pt BIB [facility] on an L2K placed by [facility] due to failure to thrive. [facility] responded to a GLF, pt was unable to get up off ground. Pt changed into gown, belongings in bags in room, resting on gurney, sitter requested, given warm blankets for comfort, NAD, denies additional needs, just states that she "doesnt belong here" and "wants to go home". WCTM
[2019-05-23 18:38] LABS: BASOPHILS # (AUTO) 0.02 x10^3/uL (0-0.1); BASOPHILS % (AUTO) 1 % (0-1); EOSINOPHILS # (AUTO) 0.02 x10^3/uL (0-0.4); EOSINOPHILS % (AUTO) 1 % (1-7); LYMPHOCYTES # (AUTO) 1.46 x10^3/uL (1-3.4); LYMPHOCYTES % (AUTO) 34 % (22-44); MD NO; MEAN CORPUSCULAR HEMOGLOBIN 33.6 pg (27.0-34.8); MEAN CORPUSCULAR HGB CONC 33.8 g/dL (32.4-35.8); MEAN CORPUSCULAR VOLUME 99.6 fL (80-100); MEAN PLATELET VOLUME 7.2 fL (7.4-10.4); MONOCYTES # (AUTO) 0.43 x10^3/uL (0.2-0.8); MONOCYTES % (AUTO) 10 % (2-9); NEUTROPHILS # (AUTO) 2.43 x10^3/uL (1.8-6.8); NEUTROPHILS % (AUTO) 56 % (42-75); PLATELET COUNT 220 x10^3/uL (130-400); RED CELL DISTRIBUTION WIDTH 13.2 % (9.6-15.2)
--- NOTE | 2019-05-23 18:43 | NUR ---
pt placed back in [facility], expressing desire to leave, NAD, even and unlabored respirations, sitter requested, WCTM.
[2019-05-23 18:50] LABS: ALBUMIN 3.1 g/dL (3.4-5.0); ANION GAP 11 mmol/L (5-15); CALCIUM 7.5 mg/dL (8.5-10.1); CHLORIDE 103 mmol/L (98-107)
[2019-05-23 18:53] LABS: ALANINE AMINOTRANSFERASE 35 U/L (12-78); ALKALINE PHOSPHATASE 138 U/L (45-117); CREATININE 0.78 mg/dL (0.55-1.02); TOTAL PROTEIN 6.5 g/dL (6.4-8.2)
[2019-05-23 18:54] LABS: SALICYLATE LEVEL < 1.7 mg/dL (2.8-20.0)
--- NOTE | 2019-05-23 19:00 | NUR ---
Bedside report to Max KAY, pt care transferred at this time.
[2019-05-23 19:41] LABS: AMPHETAMINE SCREEN, URINE Negative (Negative); BARBITURATE SCREEN, URINE Negative (Negative); BENZODIAZEPINE SCREEN, URINE Negative (Negative); CANNABINOID SCREEN, URINE Negative (Negative); COCAINE SCREEN, URINE Negative (Negative); METHADONE SCREEN, URINE Negative (Negative); OPIATE SCREEN, URINE Negative (Negative)
--- NOTE | 2019-05-23 20:57 | NUR ---
PT CONTINUES TO EXIT BED WITHOUT CALLING FOR ASSISTANCE. PT EDUCATED ON SAFETY. VERBALIZES UNDERSTANDING. PT BEING MONITORED FROM [place]. NON SKID SOCKS PROVIDED. PT IS STEADY ON HER FEET WITH FWW.
[2019-05-23 21:02] VITALS: BP 131/80
--- NOTE | 2019-05-23 21:13 | NUR ---
PT TO BATHROOM WITH FWW SBA. GAIT STEADY.
--- NOTE | 2019-05-23 22:54 | NUR ---
PT TO BATHROOM WITH FWW INDEPENDENTLY STEADY GAIT. PT A&O X4.
== END 2019-05-23 23:03 | disposition home or self-care (01) ==
LOC: ED 18:27
DX: F10.120 Alcohol abuse with intoxication, uncomplicated (principal); Y90.9 Presence of alcohol in blood, level not specified; I10 Essential (primary) hypertension; G89.29 Other chronic pain
CPT/HCPCS: 36415; 80053; 80307; 85025; 99283

== ENCOUNTER 2019-05-24 00:34 | Inpatient (IN) | payer MEDICARE, OTHER ==
[~2019-05-24] VITALS: Ht 170.2 cm; Wt 67.3 kg
[2019-05-24 01:49] LABS: BASOPHILS # (AUTO) 0.03 x10^3/uL (0-0.1); BASOPHILS % (AUTO) 0 % (0-1); EOSINOPHILS % (AUTO) 0 % (1-7); LYMPHOCYTES % (AUTO) 10 % (22-44); MD NO; MEAN CORPUSCULAR HEMOGLOBIN 33.4 pg (27.0-34.8); MEAN CORPUSCULAR HGB CONC 33.6 g/dL (32.4-35.8); MEAN CORPUSCULAR VOLUME 99.4 fL (80-100); MEAN PLATELET VOLUME 7.5 fL (7.4-10.4); MONOCYTES # (AUTO) 0.35 x10^3/uL (0.2-0.8); MONOCYTES % (AUTO) 5 % (2-9); NEUTROPHILS # (AUTO) 5.91 x10^3/uL (1.8-6.8); NEUTROPHILS % (AUTO) 85 % (42-75); PLATELET COUNT 241 x10^3/uL (130-400); RED CELL DISTRIBUTION WIDTH 13.1 % (9.6-15.2)
[2019-05-24 02:00] LABS: ALANINE AMINOTRANSFERASE 35 U/L (12-78); ALBUMIN 3.4 g/dL (3.4-5.0); ANION GAP 12 mmol/L (5-15); CALCIUM 7.7 mg/dL (8.5-10.1); CHLORIDE 101 mmol/L (98-107); CREATININE 0.78 mg/dL (0.55-1.02)
[2019-05-24] MEDS ORDERED: ONDANSETRON ODT 4 MG PO ONE (02:00)
[2019-05-24 02:02] LABS: ALKALINE PHOSPHATASE 156 U/L (45-117); BILIRUBIN,TOTAL 1.6 mg/dL (0.2-1.0); TOTAL PROTEIN 7.1 g/dL (6.4-8.2)
[2019-05-24] MEDS ORDERED: ONDANSETRON ODT 4 MG ONE (02:08)
--- NOTE | 2019-05-24 03:00 | NUR ---
PT CRYING STATING SHE CAN'T BREATHE. SPO2 MONITOR ATTACHED 95% RA UNLABORED. THEN PT REPEATING.... "GET IT OFF" REFERRING TO THE SPO2 STATING IT BOTHERS HER. PT IS UNABLE TO REMEMBER FACTS CONCERNING THE SITUATION I HAVE TOLD HER APPROX 10-15 TIMES. VITALS WNL. PROVIDER NOTIFIED.
[2019-05-24] MEDS ORDERED: LORazepam 1MG TABLET ONE (03:18)
[2019-05-24] MEDS ORDERED: LORazepam 1MG TABLET PO ONE (03:30)
--- NOTE | 2019-05-24 03:38 | NUR ---
PT MEDICATED PER APR. ASSISTED TO BSC. MED BM NORMAL COLOR AND CONSISTENCY. PT ASSISTED BTB. NO OTHER NEEDS AT THIS TIME.
--- NOTE | 2019-05-24 04:29 | NUR ---
PT RESTING COMFORTABLY. PT IS MORE CALM AND LESS EMOTIONAL RESTING WITH EYES CLOSED. AT TIMES.
--- NOTE | 2019-05-24 05:14 | NUR ---
PT ASSISTED TO BSC THEN BTB. NO OTHER NEEDS AT THIS TIME.
[2019-05-24 08:00] VITALS: BP 159/82
[2019-05-24] MEDS ORDERED: LORazepam 2 MG/ML, 1ML IV PRN ×6 (08:00→14:00)
[2019-05-24] MEDS ORDERED: POLYETHYLENE GLYCOL 17 GM PACKET PO PRN (08:00)
[2019-05-24] MEDS ORDERED: hydrALAzine 20 MG/ML, 1ML IVPush PRN (08:00)
[2019-05-24] MEDS ORDERED: BISACODYL 10 MG SUPP PR PRN (08:00)
[2019-05-24] MEDS ORDERED: ERGOCALCIFEROL 50,000 UNIT CAPSULE PO SCH (08:00)
[2019-05-24] MEDS ORDERED: ACETAMINOPHEN 325 MG TABLET PO PRN (08:00)
[2019-05-24] MEDS ORDERED: FOLIC ACID 5 MG/ML IM ONE (08:00)
[2019-05-24 08:42] LABS: HCT (SEDRATE) 34.7 % (34.6-47.8)
[2019-05-24] MEDS ORDERED: FAMOTIDINE 20 MG TABLET PO SCH (09:00)
[2019-05-24 09:04] LABS: FREE T4 (FREE THYROXINE) 1.07 ng/dL (0.76-1.46)
[2019-05-24] MEDS: LISINOPRIL 40 MG TABLET PO SCH (09:12)
[2019-05-24] MEDS: DULOXETINE 30 MG CAPSULE.DR PO SCH (09:12)
[2019-05-24] MEDS: MULTIVITAMINS/MINERALS TABLET PO SCH (09:12)
[2019-05-24] MEDS: FOLIC ACID 1 MG TABLET PO SCH (09:12)
[2019-05-24] MEDS: METOPROLOL TARTRATE 25 MG TAB PO SCH ×2 (09:13→20:24)
[2019-05-24] MEDS: ENOXAPARIN 40 MG/0.4 ML SQ SCH (09:13)
[2019-05-24] MEDS: ONDANSETRON ODT 4 MG PO PRN ×2 (11:40→19:40)
[2019-05-24 13:29] VITALS: BP 155/84
[2019-05-24] MEDS ORDERED: LORazepam 1MG TABLET PO PRN ×4 (14:00)
[2019-05-24] MEDS ORDERED: LORazepam 0.5MG TABLET PO PRN (14:00)
[2019-05-24] MEDS: PROMETHAZINE 25 MG/ML, 1ML IM PRN ×2 (14:21→20:27)
[2019-05-24 15:23] LABS: CLOSTRIDIUM DIFFICILE ANTIGEN NEGATIVE; CLOSTRIDIUM DIFFICILE TOXIN NEGATIVE (Negative)
[2019-05-24] MEDS: FLUTICASONE NASAL SPRAY 16GM NAS PRN ×2 (16:33→21:43)
[2019-05-24 19:46] VITALS: BP 148/79
[2019-05-24] MEDS: LORATADINE 10 MG TABLET PO PRN (23:35)
[2019-05-24] MEDS: ZOLPIDEM 5MG TABLET PO PRN (23:53)
[2019-05-25 01:27] VITALS: BP 188/78
[2019-05-25 06:06] LABS: ALBUMIN 2.8 g/dL (3.4-5.0); ANION GAP 7 mmol/L (5-15); CHLORIDE 100 mmol/L (98-107)
[2019-05-25 06:13] LABS: ALANINE AMINOTRANSFERASE 28 U/L (12-78); ALKALINE PHOSPHATASE 130 U/L (45-117); CALCIUM 7.7 mg/dL (8.5-10.1); CHOL/HDL RATIO 2.1; CHOLESTEROL, TOTAL 193 mg/dL (140-239); CREATININE 0.89 mg/dL (0.55-1.02); HDL CHOL % 48 % (28-40); HDL CHOLESTEROL (DIRECT) 92 mg/dL (40-60); LDL CHOLESTEROL,CALCULATED 88 mg/dL (54-169); TOTAL PROTEIN 5.9 g/dL (6.4-8.2); TRIGLYCERIDES 65 mg/dL (50-200); VLDL CHOLESTEROL 13 mg/dL (0-25)
[2019-05-25 06:15] LABS: BASOPHILS # (AUTO) 0.02 x10^3/uL (0-0.1); BASOPHILS % (AUTO) 1 % (0-1); EOSINOPHILS # (AUTO) 0.01 x10^3/uL (0-0.4); EOSINOPHILS % (AUTO) 0 % (1-7); LYMPHOCYTES # (AUTO) 1.27 x10^3/uL (1-3.4); LYMPHOCYTES % (AUTO) 29 % (22-44); MD NO; MEAN CORPUSCULAR HEMOGLOBIN 33.9 pg (27.0-34.8); MEAN CORPUSCULAR HGB CONC 34.1 g/dL (32.4-35.8); MEAN CORPUSCULAR VOLUME 99.6 fL (80-100); MONOCYTES # (AUTO) 0.48 x10^3/uL (0.2-0.8); MONOCYTES % (AUTO) 11 % (2-9); NEUTROPHILS # (AUTO) 2.54 x10^3/uL (1.8-6.8); NEUTROPHILS % (AUTO) 59 % (42-75); PLATELET COUNT 161 x10^3/uL (130-400); RED BLOOD COUNT 3.16 x10^6/uL (3.82-5.3); RED CELL DISTRIBUTION WIDTH 13.1 % (9.6-15.2)
[2019-05-25 07:20] VITALS: BP 161/75
[2019-05-25 08:00] VITALS: BP 158/87
[2019-05-25] MEDS: FOLIC ACID 1 MG TABLET PO SCH (08:01)
[2019-05-25] MEDS: ENOXAPARIN 40 MG/0.4 ML SQ SCH (08:01)
[2019-05-25] MEDS: METOPROLOL TARTRATE 25 MG TAB PO SCH ×2 (08:01→21:11)
[2019-05-25] MEDS: MULTIVITAMINS/MINERALS TABLET PO SCH (08:01)
[2019-05-25] MEDS: DULOXETINE 30 MG CAPSULE.DR PO SCH (08:02)
[2019-05-25] MEDS: LISINOPRIL 40 MG TABLET PO SCH (08:02)
[2019-05-25] MEDS: FAMOTIDINE 20 MG TABLET PO SCH (08:03)
[2019-05-25] MEDS: FLUTICASONE NASAL SPRAY 16GM NAS PRN (08:28)
[2019-05-25] MEDS: LORATADINE 10 MG TABLET PO PRN (08:28)
[2019-05-25] MEDS: THIAMINE 100 MG in DEXTROSE 5% 50 ML IVPB SCH (09:00)
[2019-05-25] MEDS ORDERED: SODIUM PHOSPHATE 30 MMOL in SODIUM CHLORIDE 0.9% 500 ML IV ONE (13:30)
[2019-05-25] MEDS ORDERED: POTASSIUM CHLORIDE 40 MEQ in SODIUM CHLORIDE 0.9% 500 ML IV ONE (13:30)
[2019-05-25] MEDS ORDERED: MAGNESIUM SULFATE 1 GM in SODIUM CHLORIDE 0.9% 50 ML IV ONE (13:30)
[2019-05-25] MEDS ORDERED: MAGNESIUM SULFATE/D5W 100 ML IV ONE ×2 (13:55→15:00)
[2019-05-25 14:06] VITALS: BP 148/89
[2019-05-25] MEDS: ONDANSETRON ODT 4 MG PO PRN (16:36)
[2019-05-25 18:14] VITALS: BP 133/69
[2019-05-25 23:44] LABS: MICROSCOPIC INDICATED
[2019-05-26] MEDS: CEFTRIAXONE PMX 1GM/50ML 50 ML IV SCH (00:50)
[2019-05-26 01:10] VITALS: BP 173/74
[2019-05-26 05:56] LABS: ALANINE AMINOTRANSFERASE 26 U/L (12-78); ALBUMIN 2.8 g/dL (3.4-5.0); ANION GAP 7 mmol/L (5-15); CALCIUM 7.6 mg/dL (8.5-10.1); CHLORIDE 98 mmol/L (98-107); CREATININE 0.81 mg/dL (0.55-1.02)
[2019-05-26 05:58] LABS: ALKALINE PHOSPHATASE 121 U/L (45-117); BILIRUBIN,TOTAL 1.6 mg/dL (0.2-1.0); TOTAL PROTEIN 6.3 g/dL (6.4-8.2)
[2019-05-26 06:05] LABS: BASOPHILS # (AUTO) 0.01 x10^3/uL (0-0.1); BASOPHILS % (AUTO) 0 % (0-1); EOSINOPHILS # (AUTO) 0.05 x10^3/uL (0-0.4); EOSINOPHILS % (AUTO) 1 % (1-7); LYMPHOCYTES % (AUTO) 17 % (22-44); MD NO; MEAN CORPUSCULAR HEMOGLOBIN 34.1 pg (27.0-34.8); MEAN CORPUSCULAR HGB CONC 34.1 g/dL (32.4-35.8); MEAN CORPUSCULAR VOLUME 99.8 fL (80-100); MEAN PLATELET VOLUME 8.5 fL (7.4-10.4); MONOCYTES # (AUTO) 0.48 x10^3/uL (0.2-0.8); MONOCYTES % (AUTO) 8 % (2-9); NEUTROPHILS # (AUTO) 4.27 x10^3/uL (1.8-6.8); NEUTROPHILS % (AUTO) 74 % (42-75); PLATELET COUNT 176 x10^3/uL (130-400); RED BLOOD COUNT 3.38 x10^6/uL (3.82-5.3); RED CELL DISTRIBUTION WIDTH 13.3 % (9.6-15.2)
[2019-05-26 06:58] VITALS: BP 183/79
[2019-05-26] MEDS: THIAMINE 100 MG in DEXTROSE 5% 50 ML IVPB SCH (10:36)
[2019-05-26] MEDS: ENOXAPARIN 40 MG/0.4 ML SQ SCH (10:36)
[2019-05-26] MEDS: MULTIVITAMINS/MINERALS TABLET PO SCH (10:36)
[2019-05-26] MEDS: LISINOPRIL 40 MG TABLET PO SCH (10:36)
[2019-05-26] MEDS: FOLIC ACID 1 MG TABLET PO SCH (10:36)
[2019-05-26] MEDS: DULOXETINE 30 MG CAPSULE.DR PO SCH (10:36)
[2019-05-26] MEDS: METOPROLOL TARTRATE 25 MG TAB PO SCH ×2 (10:36→20:24)
[2019-05-26] MEDS: FAMOTIDINE 20 MG TABLET PO SCH (10:36)
[2019-05-26] MEDS ORDERED: MAGNESIUM SULFATE/D5W 100 ML IV ONE (14:00)
[2019-05-26 16:00] VITALS: BP 169/81
[2019-05-26 19:42] VITALS: BP 148/89
[2019-05-27] MEDS: CEFTRIAXONE PMX 1GM/50ML 50 ML IV SCH (00:37)
[2019-05-27 00:50] VITALS: BP 148/78
[2019-05-27 05:17] LABS: BASOPHILS % (AUTO) 0 % (0-1); EOSINOPHILS # (AUTO) 0.02 x10^3/uL (0-0.4); EOSINOPHILS % (AUTO) 0 % (1-7); LYMPHOCYTES # (AUTO) 0.82 x10^3/uL (1-3.4); LYMPHOCYTES % (AUTO) 16 % (22-44); MD NO; MEAN CORPUSCULAR HEMOGLOBIN 34.4 pg (27.0-34.8); MEAN CORPUSCULAR HGB CONC 34.5 g/dL (32.4-35.8); MEAN CORPUSCULAR VOLUME 99.7 fL (80-100); MEAN PLATELET VOLUME 8.2 fL (7.4-10.4); MONOCYTES % (AUTO) 10 % (2-9); NEUTROPHILS # (AUTO) 3.73 x10^3/uL (1.8-6.8); NEUTROPHILS % (AUTO) 74 % (42-75); PLATELET COUNT 187 x10^3/uL (130-400); RED BLOOD COUNT 3.39 x10^6/uL (3.82-5.3); RED CELL DISTRIBUTION WIDTH 13.2 % (9.6-15.2)
[2019-05-27 05:24] LABS: ANION GAP 5 mmol/L (5-15); CALCIUM 8.3 mg/dL (8.5-10.1); CHLORIDE 96 mmol/L (98-107)
[2019-05-27 05:27] LABS: ALANINE AMINOTRANSFERASE 26 U/L (12-78); ALKALINE PHOSPHATASE 121 U/L (45-117); BILIRUBIN,TOTAL 1.6 mg/dL (0.2-1.0); CREATININE 0.74 mg/dL (0.55-1.02); TOTAL PROTEIN 6.5 g/dL (6.4-8.2)
[2019-05-27 07:25] VITALS: BP 187/80
[2019-05-27] MEDS: ENOXAPARIN 40 MG/0.4 ML SQ SCH (08:28)
[2019-05-27] MEDS: MULTIVITAMINS/MINERALS TABLET PO SCH (08:29)
[2019-05-27] MEDS: FAMOTIDINE 20 MG TABLET PO SCH (08:29)
[2019-05-27] MEDS: DULOXETINE 30 MG CAPSULE.DR PO SCH (08:29)
[2019-05-27] MEDS: THIAMINE 100 MG in DEXTROSE 5% 50 ML IVPB SCH (08:29)
[2019-05-27] MEDS: METOPROLOL TARTRATE 25 MG TAB PO SCH ×2 (08:29→21:48)
[2019-05-27] MEDS: FOLIC ACID 1 MG TABLET PO SCH (08:29)
[2019-05-27] MEDS: LISINOPRIL 40 MG TABLET PO SCH (08:29)
[2019-05-27 15:08] VITALS: BP 172/79
[2019-05-27 18:48] VITALS: BP 183/91
[2019-05-27 19:45] VITALS: BP 202/96
[2019-05-27 20:14] VITALS: BP 154/74
[2019-05-27] MEDS: FLUTICASONE NASAL SPRAY 16GM NAS PRN (20:40)
[2019-05-27] MEDS: ZOLPIDEM 5MG TABLET PO PRN (23:15)
[2019-05-28 00:02] VITALS: BP 146/79
[2019-05-28] MEDS: CEFTRIAXONE PMX 1GM/50ML 50 ML IV SCH (00:09)
[2019-05-28 06:16] LABS: BASOPHILS # (AUTO) 0.02 x10^3/uL (0-0.1); BASOPHILS % (AUTO) 1 % (0-1); EOSINOPHILS % (AUTO) 0 % (1-7); LYMPHOCYTES # (AUTO) 0.79 x10^3/uL (1-3.4); LYMPHOCYTES % (AUTO) 15 % (22-44); MD NO; MEAN CORPUSCULAR HEMOGLOBIN 34.1 pg (27.0-34.8); MEAN CORPUSCULAR HGB CONC 34.3 g/dL (32.4-35.8); MEAN CORPUSCULAR VOLUME 99.4 fL (80-100); MEAN PLATELET VOLUME 8.1 fL (7.4-10.4); MONOCYTES # (AUTO) 0.68 x10^3/uL (0.2-0.8); MONOCYTES % (AUTO) 13 % (2-9); NEUTROPHILS # (AUTO) 3.87 x10^3/uL (1.8-6.8); NEUTROPHILS % (AUTO) 72 % (42-75); PLATELET COUNT 209 x10^3/uL (130-400); RED BLOOD COUNT 3.26 x10^6/uL (3.82-5.3); RED CELL DISTRIBUTION WIDTH 13.4 % (9.6-15.2)
[2019-05-28 06:23] LABS: ANION GAP 6 mmol/L (5-15); CALCIUM 8.4 mg/dL (8.5-10.1); CHLORIDE 96 mmol/L (98-107); CREATININE 0.75 mg/dL (0.55-1.02)
[2019-05-28 07:41] VITALS: BP 188/75
[2019-05-28] MEDS: DULOXETINE 30 MG CAPSULE.DR PO SCH (08:07)
[2019-05-28] MEDS: THIAMINE 100 MG in DEXTROSE 5% 50 ML IVPB SCH (08:07)
[2019-05-28] MEDS: ENOXAPARIN 40 MG/0.4 ML SQ SCH (08:07)
[2019-05-28] MEDS: FAMOTIDINE 20 MG TABLET PO SCH (08:08)
[2019-05-28] MEDS: LISINOPRIL 40 MG TABLET PO SCH (08:08)
[2019-05-28] MEDS: METOPROLOL TARTRATE 25 MG TAB PO SCH (08:08)
[2019-05-28] MEDS: FOLIC ACID 1 MG TABLET PO SCH (08:08)
[2019-05-28] MEDS: MULTIVITAMINS/MINERALS TABLET PO SCH (08:08)
[2019-05-28] MEDS ORDERED: FOLI-17 PO (11:12)
[2019-05-28] MEDS ORDERED: THIA100T27 PO (11:12)
[2019-05-28] MEDS ORDERED: FAMO20TA7 PO (11:12)
[2019-05-28] MEDS ORDERED: MULT-484 PO (11:12)
[2019-05-28 14:00] VITALS: BP 145/75
== END 2019-05-28 18:35 | DRG 897 ==
LOC: ED 00:45 → 3N 07:04
PROVIDERS: ADMIT Internal Medicine; ATTEND Hospitalist
DX: F10.229 Alcohol dependence with intoxication, unspecified (principal); E87.1 Hypo-osmolality and hyponatremia; R62.7 Adult failure to thrive; E83.42 Hypomagnesemia; E87.6 Hypokalemia; G30.1 Alzheimer's disease with late onset; F02.80 Dementia in other diseases classified elsewhere, unspecified severity, without behavioral disturbance, psychotic disturbance, mood disturbance, and anxiety; F32.9 Major depressive disorder, single episode, unspecified; F41.9 Anxiety disorder, unspecified; I10 Essential (primary) hypertension; Z87.440 Personal history of urinary (tract) infections; Z90.710 Acquired absence of both cervix and uterus; Z91.81 History of falling; Z90.49 Acquired absence of other specified parts of digestive tract
CPT/HCPCS: 36415; 70450; 80048; 80053; 80061; 80307; 81001; 83735; 84100; 84439; 84443; 85025; 85651; 87086; 87324; 99283; 99285; G0378; J0696; J1650; J2550; J3411; J3480; Q0162; J0360; J7040

== ENCOUNTER 2019-06-07 03:07 | Inpatient (IN) | payer MEDICARE, OTHER ==
[~2019-06-07] VITALS: Ht 167.6 cm; Wt 65.5 kg
[~2019-06-07 03:07] MED LIST changes: +FAMO20TA7 PO; +FOLI-17 PO; +MULT-484 PO; +THIA100T27 PO
--- NOTE | 2019-06-07 03:28 | NUR ---
THIS IS A 74Y F BIB EMS FROM HOME. PER EMS PT FELL EARLIER TODAY AND HAS BEEN C/O DRY COUGH X1DAY ALONG WITH NAUSEA AND LOOSE STOOL. EMS ALSO REPORTS HOME IS IN DEPLORABLE CONDITIONS THAT ARE NOT COMPATIBLE WITH LIFE. PT ARRIVED COVERED IN FECES. PT STS SHE DOES NOT KNOW WHY SHE IS HERE AND HAS NO MEDICAL COMPLAINTS. PT CURRENTLY A/O 1-2. PT CONNECTED TO MONITORING. VSS, PT HAS HX OF HTN AND BP IS ELEVATED AT THIS TIME ERP AWARE
--- NOTE | 2019-06-07 03:47 | NUR ---
PT TO CT AT THIS TIME
[2019-06-07 03:52] LABS: BASOPHILS % (AUTO) 0 % (0-1); EOSINOPHILS % (AUTO) 0 % (1-7); LYMPHOCYTES % (AUTO) 8 % (22-44); MD NO; MEAN CORPUSCULAR HEMOGLOBIN 34.2 pg (27.0-34.8); MEAN CORPUSCULAR HGB CONC 34.2 g/dL (32.4-35.8); MEAN CORPUSCULAR VOLUME 100.1 fL (80-100); MEAN PLATELET VOLUME 7.3 fL (7.4-10.4); MONOCYTES # (AUTO) 0.51 x10^3/uL (0.2-0.8); MONOCYTES % (AUTO) 5 % (2-9); NEUTROPHILS # (AUTO) 9.07 x10^3/uL (1.8-6.8); NEUTROPHILS % (AUTO) 87 % (42-75); PLATELET COUNT 535 x10^3/uL (130-400); RED BLOOD COUNT 3.66 x10^6/uL (3.82-5.3); RED CELL DISTRIBUTION WIDTH 13.2 % (9.6-15.2)
[2019-06-07 04:03] LABS: ALBUMIN 3.5 g/dL (3.4-5.0); ANION GAP 13 mmol/L (5-15); CALCIUM 8.4 mg/dL (8.5-10.1); CHLORIDE 100 mmol/L (98-107); SALICYLATE LEVEL < 1.7 mg/dL (2.8-20.0)
[2019-06-07 04:08] LABS: ALANINE AMINOTRANSFERASE 39 U/L (12-78); ALKALINE PHOSPHATASE 120 U/L (45-117); BILIRUBIN,TOTAL 1.1 mg/dL (0.2-1.0); CREATININE 0.84 mg/dL (0.55-1.02); TOTAL PROTEIN 7.1 g/dL (6.4-8.2); TROPONIN I < 0.015 ng/mL (0.000-0.045)
--- NOTE | 2019-06-07 04:10 | NUR ---
FSBS 92, TECH AT BEDSIDE FOR EKG
--- NOTE | 2019-06-07 04:19 | NUR ---
PT RESTING ON JAIDEN SALDAÑA
[2019-06-07] MEDS ORDERED: ONDANSETRON ODT 4 MG ONE (05:08)
--- NOTE | 2019-06-07 05:15 | NUR ---
PT SUCCESSFULLY AMBULATED WITH USE OF HOME WALKER WITHOUT ASSISTANCE. PT BACK TO BED AND VOMITING. ERP UPDATED.
--- NOTE | 2019-06-07 05:24 | NUR ---
ERP AT BEDSIDE TO ASSESS PT
[2019-06-07] MEDS ORDERED: ONDANSETRON ODT 4 MG PO ONE (05:30)
--- NOTE | 2019-06-07 06:10 | NUR ---
PT RESTING ON JAIDEN MOREAU
--- NOTE | 2019-06-07 06:39 | NUR ---
PT UPTO BSC STBA. PT NOW SAYING "THE WALL IS BECOMING MORE MONOTONOUS." PT ALSO ADDS "WHEN WILL I GO TO MY OTHER ROOM AND I JUST DO NOT WANT TO BE ALONE." PT REASSURED THAT RN NEARBY AT ALL TIMES AND THAT SHE WILL HAVE A ROOM WHEN ONE BECOMES AVAILABLE.
--- NOTE | 2019-06-07 06:59 | NUR ---
REPORT OF PT FROM RAHUL FULTON AND ASSUMING CARE OF PT AT THIS TIME.
[2019-06-07] MEDS ORDERED: LORazepam 2 MG/ML, 1ML ONE (07:19)
[2019-06-07] MEDS ORDERED: morphine SULFATE 10 MG/ML, 1ML IVPush PRN (07:30)
[2019-06-07] MEDS ORDERED: GABAPENTIN 300 MG CAPSULE PO PRN (07:30)
[2019-06-07] MEDS ORDERED: ONDANSETRON ODT 4 MG PO PRN (07:30)
[2019-06-07] MEDS ORDERED: hydrALAzine 20 MG/ML, 1ML IVPush PRN (07:30)
[2019-06-07] MEDS ORDERED: ACETAMINOPHEN 325 MG TABLET PO PRN (07:30)
[2019-06-07] MEDS ORDERED: ONDANSETRON 2MG/ML, 2ML IVPush PRN (07:30)
--- NOTE | 2019-06-07 07:43 | NUR ---
PT MEDICATED PER MAR FOR ANXIETY. REPORT OF PT CALLED TO RAHUL COFFMAN. ALL QUESTIONS ANSWERED.
[2019-06-07] MEDS: LORazepam 2 MG/ML, 1ML IV PRN (07:46)
[2019-06-07] MEDS ORDERED: LORazepam 1MG TABLET PO PRN ×4 (08:00)
[2019-06-07] MEDS ORDERED: LORazepam 2 MG/ML, 1ML IV PRN ×4 (08:00)
[2019-06-07] MEDS ORDERED: THIAMINE 200 MG in DEXTROSE 5% 50 ML IVPB ONE (08:00)
[2019-06-07] MEDS ORDERED: FOLIC ACID 5 MG/ML IM ONE (08:00)
[2019-06-07] MEDS ORDERED: LORazepam 0.5MG TABLET PO PRN (08:00)
[2019-06-07] MEDS ORDERED: POTASSIUM CHLORIDE 10% 40 MEQ/30 ML UDC PO ONE (08:00)
[2019-06-07 08:16] VITALS: BP 148/86
[2019-06-07] MEDS: NS + 20MEQ KCL 1,000 ML IV SCH (09:57)
[2019-06-07] MEDS: FAMOTIDINE 20 MG TABLET PO SCH (09:57)
[2019-06-07] MEDS: MULTIVITAMINS/MINERALS TABLET PO SCH (09:57)
[2019-06-07] MEDS: METOPROLOL TARTRATE 25 MG TAB PO SCH ×2 (09:58→21:35)
[2019-06-07] MEDS: LISINOPRIL 40 MG TABLET PO SCH (09:58)
[2019-06-07] MEDS: DULOXETINE 30 MG CAPSULE.DR PO SCH (09:58)
[2019-06-07] MEDS: FOLIC ACID 1 MG TABLET PO SCH (09:58)
[2019-06-07] MEDS ORDERED: MAGNESIUM SULFATE PMX 2GM/50ML 50 ML IV ONE (11:30)
[2019-06-07 12:42] LABS: CULTURE INDICATED? YES; MICROSCOPIC INDICATED
[2019-06-07 13:47] VITALS: BP 117/71
[2019-06-07] MEDS: ENOXAPARIN 40 MG/0.4 ML SQ SCH (18:00)
[2019-06-07 18:15] LABS: AMPHETAMINE SCREEN, URINE Negative (Negative); BARBITURATE SCREEN, URINE Negative (Negative); BENZODIAZEPINE SCREEN, URINE Negative (Negative); CANNABINOID SCREEN, URINE Negative (Negative); COCAINE SCREEN, URINE Negative (Negative); METHADONE SCREEN, URINE Negative (Negative); OPIATE SCREEN, URINE Negative (Negative)
[2019-06-07 19:34] VITALS: BP 113/68
[2019-06-08 01:26] VITALS: BP 133/75
[2019-06-08 05:30] LABS: BASOPHILS # (AUTO) 0.01 x10^3/uL (0-0.1); BASOPHILS % (AUTO) 0 % (0-1); EOSINOPHILS # (AUTO) 0.02 x10^3/uL (0-0.4); EOSINOPHILS % (AUTO) 0 % (1-7); LYMPHOCYTES % (AUTO) 20 % (22-44); MD NO; MEAN CORPUSCULAR HEMOGLOBIN 33.6 pg (27.0-34.8); MEAN CORPUSCULAR HGB CONC 33.7 g/dL (32.4-35.8); MEAN CORPUSCULAR VOLUME 99.7 fL (80-100); MEAN PLATELET VOLUME 8.2 fL (7.4-10.4); MONOCYTES # (AUTO) 0.76 x10^3/uL (0.2-0.8); MONOCYTES % (AUTO) 11 % (2-9); NEUTROPHILS # (AUTO) 4.95 x10^3/uL (1.8-6.8); NEUTROPHILS % (AUTO) 69 % (42-75); PLATELET COUNT 456 x10^3/uL (130-400); RED BLOOD COUNT 3.29 x10^6/uL (3.82-5.3); RED CELL DISTRIBUTION WIDTH 13.3 % (9.6-15.2)
[2019-06-08 05:51] LABS: ALANINE AMINOTRANSFERASE 29 U/L (12-78); ALBUMIN 2.8 g/dL (3.4-5.0); ANION GAP 9 mmol/L (5-15); CALCIUM 8.7 mg/dL (8.5-10.1); CHLORIDE 103 mmol/L (98-107); CREATININE 1.25 mg/dL (0.55-1.02)
[2019-06-08 05:53] LABS: ALKALINE PHOSPHATASE 107 U/L (45-117); BILIRUBIN,TOTAL 1.3 mg/dL (0.2-1.0); TOTAL PROTEIN 6.2 g/dL (6.4-8.2)
[2019-06-08] MEDS: NS + 20MEQ KCL 1,000 ML IV SCH (06:41)
[2019-06-08 07:07] VITALS: BP 178/81
[2019-06-08] MEDS: DULOXETINE 30 MG CAPSULE.DR PO SCH (07:57)
[2019-06-08] MEDS: THIAMINE 100MG TABLET PO SCH ×2 (07:57→22:01)
[2019-06-08] MEDS: MULTIVITAMINS/MINERALS TABLET PO SCH (07:57)
[2019-06-08] MEDS: FOLIC ACID 1 MG TABLET PO SCH (07:57)
[2019-06-08] MEDS: LISINOPRIL 40 MG TABLET PO SCH (07:57)
[2019-06-08] MEDS: METOPROLOL TARTRATE 25 MG TAB PO SCH ×2 (07:57→22:00)
[2019-06-08] MEDS: FAMOTIDINE 20 MG TABLET PO SCH (07:58)
[2019-06-08] MEDS: AMLODIPINE 2.5 MG TABLET PO SCH ×2 (11:45→22:00)
[2019-06-08 14:33] VITALS: BP 160/69
[2019-06-08] MEDS: DIAZEPAM 2 MG TABLET PO SCH ×2 (16:07→23:44)
[2019-06-08] MEDS: ENOXAPARIN 40 MG/0.4 ML SQ SCH (18:00)
[2019-06-08 18:56] VITALS: BP 136/66
[2019-06-08 23:37] VITALS: BP 180/72
[2019-06-09 00:46] VITALS: BP 178/81
[2019-06-09 02:02] VITALS: BP 159/70
[2019-06-09] MEDS: LORazepam 2 MG/ML, 1ML IV PRN (06:10)
[2019-06-09 07:29] VITALS: BP 166/72
[2019-06-09] MEDS: AMLODIPINE 2.5 MG TABLET PO SCH ×2 (09:47→20:27)
[2019-06-09] MEDS: FOLIC ACID 1 MG TABLET PO SCH (09:47)
[2019-06-09] MEDS: THIAMINE 100MG TABLET PO SCH ×2 (09:47→20:27)
[2019-06-09] MEDS: LISINOPRIL 40 MG TABLET PO SCH (09:47)
[2019-06-09] MEDS: MULTIVITAMINS/MINERALS TABLET PO SCH (09:47)
[2019-06-09] MEDS: DULOXETINE 30 MG CAPSULE.DR PO SCH (09:48)
[2019-06-09] MEDS: FAMOTIDINE 20 MG TABLET PO SCH (09:48)
[2019-06-09] MEDS: METOPROLOL TARTRATE 25 MG TAB PO SCH ×2 (09:48→20:27)
[2019-06-09] MEDS: DIAZEPAM 5 MG TABLET PO SCH ×3 (09:48→20:27)
[2019-06-09 15:01] VITALS: BP 130/70
[2019-06-09] MEDS: ENOXAPARIN 40 MG/0.4 ML SQ SCH (18:00)
[2019-06-09 20:00] VITALS: BP 176/76
[2019-06-10 01:39] VITALS: BP 164/75
[2019-06-10 05:48] LABS: ANION GAP 6 mmol/L (5-15); CALCIUM 8.9 mg/dL (8.5-10.1); CHLORIDE 98 mmol/L (98-107)
[2019-06-10 05:52] LABS: ALANINE AMINOTRANSFERASE 25 U/L (12-78); ALKALINE PHOSPHATASE 96 U/L (45-117); BILIRUBIN,TOTAL 1.2 mg/dL (0.2-1.0); CREATININE 0.81 mg/dL (0.55-1.02); TOTAL PROTEIN 6.2 g/dL (6.4-8.2)
[2019-06-10 07:25] VITALS: BP 160/71
[2019-06-10] MEDS ORDERED: LISI40TA PO (09:26)
[2019-06-10] MEDS ORDERED: DULO30CA2 PO (09:26)
[2019-06-10] MEDS ORDERED: CLON0.2T10 PO (09:26)
[2019-06-10] MEDS ORDERED: METO25TA35 PO (09:26)
[2019-06-10] MEDS ORDERED: ERGO500017 PO (09:26)
[2019-06-10] MEDS ORDERED: AMLO5TAB4 PO (09:29)
[2019-06-10] MEDS ORDERED: MAGNESIUM SULFATE PMX 2GM/50ML 50 ML IV ONE (09:30)
[2019-06-10] MEDS: FAMOTIDINE 20 MG TABLET PO SCH (09:43)
[2019-06-10] MEDS: AMLODIPINE 2.5 MG TABLET PO SCH (09:43)
[2019-06-10] MEDS: THIAMINE 100MG TABLET PO SCH (09:44)
[2019-06-10] MEDS: LISINOPRIL 40 MG TABLET PO SCH (09:44)
[2019-06-10] MEDS: FOLIC ACID 1 MG TABLET PO SCH (09:44)
[2019-06-10] MEDS: DULOXETINE 30 MG CAPSULE.DR PO SCH (09:44)
[2019-06-10] MEDS: MULTIVITAMINS/MINERALS TABLET PO SCH (09:46)
[2019-06-10] MEDS: METOPROLOL TARTRATE 25 MG TAB PO SCH (09:46)
== END 2019-06-10 12:49 | disposition home or self-care (01) | DRG 683 ==
LOC: ED 03:30 → EDIP 04:57 → 3N 08:06
PROVIDERS: ADMIT Internal Medicine; ATTEND Hospitalist
DX: N17.0 Acute kidney failure with tubular necrosis (principal); F10.239 Alcohol dependence with withdrawal, unspecified; E87.1 Hypo-osmolality and hyponatremia; R62.7 Adult failure to thrive; I10 Essential (primary) hypertension; G89.29 Other chronic pain; M54.9 Dorsalgia, unspecified; E83.42 Hypomagnesemia; S41.111A Laceration without foreign body of right upper arm, initial encounter; I48.91 Unspecified atrial fibrillation; F41.9 Anxiety disorder, unspecified; D72.829 Elevated white blood cell count, unspecified; R82.81 Pyuria; E87.6 Hypokalemia; K70.10 Alcoholic hepatitis without ascites; R25.1 Tremor, unspecified; F32.9 Major depressive disorder, single episode, unspecified; Z88.1 Allergy status to other antibiotic agents; Z90.49 Acquired absence of other specified parts of digestive tract; Z90.710 Acquired absence of both cervix and uterus; Z87.440 Personal history of urinary (tract) infections; Z91.19 Patient's noncompliance with other medical treatment and regimen; Z68.23 Body mass index [BMI] 23.0-23.9, adult; W18.30XA Fall on same level, unspecified, initial encounter; Y93.89 Activity, other specified; Y92.89 Other specified places as the place of occurrence of the external cause; Y99.8 Other external cause status; Y90.2 Blood alcohol level of 40-59 mg/100 ml
CPT/HCPCS: 36415; 70450; 71045; 80053; 80307; 81001; 82140; 82962; 83735; 84100; 84484; 85025; 87086; 93005; 99285; G0378; J3411; J3480; Q0162; J0360; J2060; J3475

== ENCOUNTER 2019-06-13 19:57 | Emergency (ER) | payer MEDICARE, OTHER ==
[~2019-06-13] VITALS: Ht 165.1 cm; Wt 58.0 kg
[~2019-06-13 19:57] MED LIST changes: +LISI40TA PO
[2019-06-13 20:00] VITALS: BP 166/66
--- NOTE | 2019-06-13 20:05 | NUR ---
PT BIB [facility] FOR NAUSEA. PT CALLED 911 BECAUSE "I WAS FEELING NAUSEOUS". PT GOT 4MG ZOFRAN EN ROUTE AND REPORTS THAT SHE IS FEELING BETTER. PT REFUSED IV. PT REFUSED TO WEAR A GOWN. PT STATED "I THINK I CAN GO HOME". PT GIVEN WATER FOR PO CHALLENGE BUT SHE DIDNT WANT IT. VITAL SIGNS ARE STABLE.
--- NOTE | 2019-06-13 20:17 | NUR ---
BREATHALYZER 0.000
== END 2019-06-13 20:56 | disposition home or self-care (01) ==
LOC: ED 20:41
DX: R11.0 Nausea (principal); I10 Essential (primary) hypertension; R94.31 Abnormal electrocardiogram [ECG] [EKG]
CPT/HCPCS: 93005; 99283

== ENCOUNTER 2019-06-29 06:35 | Emergency (ER) | payer MEDICARE, OTHER ==
[~2019-06-29] VITALS: Ht 170.2 cm; Wt 60.0 kg
--- NOTE | 2019-06-29 06:46 | NUR ---
PT JERAMIE BARBER FOR C/O NAUSEA AND ANXIETY, REPORT TO SUSAN
--- NOTE | 2019-06-29 06:50 | NUR ---
report received from sariah mccray.
[2019-06-29] MEDS ORDERED: SODIUM CHLORIDE 0.9% 1,000ML IVBOLUS ONE (07:00)
[2019-06-29] MEDS ORDERED: PROMETHAZINE 25 MG/ML, 1ML IM ONE (07:00)
[2019-06-29] MEDS ORDERED: LORazepam 1MG TABLET PO ONE (07:00)
[2019-06-29] MEDS ORDERED: PROMETHAZINE 25 MG/ML, 1ML ONE (07:04)
[2019-06-29] MEDS ORDERED: LORazepam 1MG TABLET ONE (07:04)
--- NOTE | 2019-06-29 07:28 | NUR ---
pt medicated per emar. pt tolerated well.
[2019-06-29 08:18] LABS: BASOPHILS # (AUTO) 0.03 x10^3/uL (0-0.1); BASOPHILS % (AUTO) 0 % (0-1); EOSINOPHILS % (AUTO) 0 % (1-7); LYMPHOCYTES % (AUTO) 6 % (22-44); MD NO; MEAN CORPUSCULAR HEMOGLOBIN 33.9 pg (27.0-34.8); MEAN CORPUSCULAR HGB CONC 34.1 g/dL (32.4-35.8); MEAN CORPUSCULAR VOLUME 99.5 fL (80-100); MEAN PLATELET VOLUME 7.6 fL (7.4-10.4); MONOCYTES % (AUTO) 4 % (2-9); NEUTROPHILS % (AUTO) 90 % (42-75); PLATELET COUNT 355 x10^3/uL (130-400); RED BLOOD COUNT 3.66 x10^6/uL (3.82-5.3); RED CELL DISTRIBUTION WIDTH 14.1 % (9.6-15.2)
[2019-06-29 08:29] LABS: ALANINE AMINOTRANSFERASE 18 U/L (12-78); ALBUMIN 3.3 g/dL (3.4-5.0); ANION GAP 10 mmol/L (5-15); CALCIUM 7.6 mg/dL (8.5-10.1); CHLORIDE 103 mmol/L (98-107); CREATININE 0.97 mg/dL (0.55-1.02)
[2019-06-29 08:31] LABS: ALKALINE PHOSPHATASE 112 U/L (45-117); TOTAL PROTEIN 6.7 g/dL (6.4-8.2)
--- NOTE | 2019-06-29 08:43 | NUR ---
PT SLEEPING IN [facility]. RESPS EVEN AND UNLABORED. ALL MONITORS IN PLACE. CALL LIGHT WITHIN REACH.
--- NOTE | 2019-06-29 09:29 | NUR ---
pt resting in [facility]. pt's aox4. resps even and unlabored. ns still infusing.
[2019-06-29 10:55] VITALS: BP 164/71
--- NOTE | 2019-06-29 10:56 | NUR ---
pt using bedside comode per request at this time.
--- NOTE | 2019-06-29 11:16 | NUR ---
THIS RN CALLED SW. NO ANSWER AT THIS TIME. LEFT MESSAGE.
--- NOTE | 2019-06-29 11:27 | NUR ---
this rn discussed with sw by phone. pt is safe to dc and sw will send a home health for this pt.
[2019-06-29] MEDS ORDERED: POTASSIUM CHLORIDE 20 MEQ TAB.ER.PRT ONE (11:29)
[2019-06-29] MEDS: POTASSIUM CHLORIDE 20 MEQ TAB.ER.PRT PO ONE ×2 (11:30→11:32)
--- NOTE | 2019-06-29 11:34 | NUR ---
Note aida in EDM - 06/29/19 at 1138 by FIDEL PT MEDICATED PER EMAR. PT TOLERATED WELL. PT'S AOX4. RESPS EVEN AND UNLABORED.
--- NOTE | 2019-06-29 11:38 | NUR ---
PT IS NOT ABLE TO TAKE K-DUR. PT TOOK JUST HALF PILL AND STATES"IT'S TOO BIG AND I CAN'T TAKE IT ANYMORE." EDMD NOTIFIED.
--- NOTE | 2019-06-29 11:44 | NUR ---
THIS RN CALLED PHARMACY FOR LIQUID K-DUR PER EDMD VERBAL ORDER. PHARMACY STATES"IT IS EXPENSIVE. PUT K-DUR IN WATER."
--- NOTE | 2019-06-29 11:46 | NUR ---
PT MEDICATED PER EMAR(K-DUR WITH WATER) PT TOLERATED WELL. PT'S AOX4. RESPS EVEN AND UNLABORED.
--- NOTE | 2019-06-29 12:09 | NUR ---
Patient given discharge instructions and they have confirmed that they understand the instructions.
== END 2019-06-29 12:10 | disposition home or self-care (01) ==
LOC: ED 07:15
DX: F41.1 Generalized anxiety disorder (principal); E87.6 Hypokalemia; R11.0 Nausea; I10 Essential (primary) hypertension
CPT/HCPCS: 36415; 80053; 85025; 96372; 99285; J2550; J7030; 96360; 96361

== ENCOUNTER 2019-09-07 10:41 | Emergency (ER) | payer MEDICARE, OTHER ==
[~2019-09-07] VITALS: Ht 170.2 cm; Wt 56.4 kg
[~2019-09-07 10:41] MED LIST changes: -BUSP7.5T3 PO; +BUSP7.5T5 PO
[2019-09-07 10:54] VITALS: BP 117/83
--- NOTE | 2019-09-07 10:57 | NUR ---
EMS CALLED BY PT. PHOTOS OF HOME INTERIOR TAKEN BY EMS: HOUSE IN DISARRAY; FOOD, BOTTLES (INCLUDING ALCOHOL BOTTLES), PLATES W/ FOOD ON COUNTERS AND IN SINK. REFRIGERATOR CONTAINING MOLDY FOOD. PAPER PILES ON FLOORS. PER SUNIL HUDSON, SHE WILL FILE A REPORT WITH [facility] [employer]; SUNIL DISPATCH WILL FILE A REPORT W/ MOST. PER BECCA, IF COPY OF PHOTO'S NEEDED, TEXT HER AT [phone]. PT ADMITS TO ETOH INTAKE TODAY; UNSURE HOW MUCH SHE DRANK, "VODKA MIXED WITH SOMETHING". PT STATES "I'M SCARED" "OF HOSPITALS".
--- NOTE | 2019-09-07 11:09 | NUR ---
PT REPORTS SHE HAS NOT TAKEN ANY MEDICINES RECENTLY; UNABLE TO RECALL NAMES OF PRESCRIPTIONS.
--- NOTE | 2019-09-07 11:15 | NUR ---
SIDE RAIL UP X1, CALL LIGHT GIVEN TO PT
--- NOTE | 2019-09-07 11:21 | NUR ---
PT REPEATEDLY ASKING FOR "SOMETHING TO CALM ME DOWN" INFORMED PT I CAN NOT GIVE HER MEDICATIONS UNTIL SHE'S SEEN BY THE DOCTOR. PT REPEATED ASKS "WHEN WILL HE SEE ME?" INFORMED PT THAT I DON'T HAVE THE EXACT ANSWER THE ED IS VERY BUSY TODAY. PT ASKING WHY PEOPLE ARE CONCERNED ABOUT HOW SHE LIVES, STATES "THAT'S HOW I KEEP MY HOUSE". PT THREATENED TO LEAVE. INFORMED HER THAT SHE NEEDS TO STAY FOR EVALUATION.
--- NOTE | 2019-09-07 12:21 | NUR ---
PT REPEATEDLY COMING TO ROOM DOORWAY ASKING WHEN SHE'LL BE SEEN. REPEATEDLY INFORM PT THAT THE ED IS VERY BUSY AND THE DOCTOR WILL SEE HER SOON POSSIBLE.
--- NOTE | 2019-09-07 12:35 | NUR ---
DR ROTHMAN AT BS
--- NOTE | 2019-09-07 12:53 | NUR ---
ELDA, SYSTEMS INTEGRATION ADVISOR, AT BS
--- NOTE | 2019-09-07 13:10 | NUR ---
PT REFUSED DC VS CHECK. STATES "I WANT TO GO HOME NOW!" STATES SHE'LL CALL A [facility] FOR TRANSPORT.
== END 2019-09-07 13:27 | disposition home or self-care (01) ==
LOC: ED 11:00
DX: R62.7 Adult failure to thrive (principal); I10 Essential (primary) hypertension
CPT/HCPCS: 99283